=== PATIENT | male | born 1945 | race Caucasian/White ===

== ENCOUNTER 2024-04-24 15:12 | Observation (INO) | payer MEDICARE, MEDICAID, SELFPAY ==
[2024-04-24] VITALS (9 sets, daily range): BP systolic 109–150; BP diastolic 64–75; PULSE 74–80; RESP 15–20; TEMP 36.4–36.9; O2SAT 98–100; BMI 31.7
--- NOTE | ~2024-04-24 | XR_ITS ---
XR chest 1V portable Ordering provider: Vasquez Stewart MD History: 79 years Male with . AMS INCREASING WEAKNESS AND DIZZINESS . Comparison: April 06, 2024 FINDINGS: MEDIASTINUM: The cardiac silhouette is not enlarged. Slightly enlarged. LUNGS: No infiltrates, effusions or pneumothorax. Underlying interstitial changes suggestive of fibro sis. Prominent markings in the lower lobes bilaterally. OTHER: No free air under the diaphragm. Degenerative changes of the spine. IMPRESSION: No acute cardiopulmonary pathology. Reviewed, dictated and finalized at location A.
--- NOTE | ~2024-04-24 | CT_ITS ---
CT brain wo con Ordering provider: Vasquez Stewart MD History: 79 years Male with . AMS . Comparison: April 06, 2024 Technique: CT of the head without contrast. Radiation reduction technique utilized. The DLP is 605.33 mGy. FINDINGS: BRAIN PARENCHYMA AND CSF SPACES: Deep white matter ischemic changes. No midline shift, mass effect or hemorrhage. The brain parenchyma and CSF spaces are otherwise normal. VISUALIZED PARANASAL SINUSES: Well aerated. MASTOIDS: Well aerated. BONES: The bones appear intact. SOFT TISSUES: Visualized nasopharynx is normal. Superficial soft tissues are normal. IMPRESSION: No acute intracranial findings. Reviewed, dictated and finalized at location A.
--- NOTE | ~2024-04-24 | US_ITS ---
EXAMINATION: US abdomen limited DATE: 05/03/2024 07:41 INDICATION: Abnormal liver function tests. TECHNIQUE: Multiple grayscale and Doppler ultrasound images of the abdomen were obtained. COMPARISON: None FINDINGS: The visualized portions of the head and body of the pancreas are normal. The liver is fatimah l without focal lesion. There is normal flow in main portal vein. The gallbladder is normal in size. No gallstones or gallbladder wall thickening. There was no sonographic Pena's sign. The common duct is normal and measures 4 mm. IMPRESSION: 1. Normal right upper quadrant ultrasound. Reviewed, dictated and finalized at location A.
--- NOTE | ~2024-04-24 | CT_ITS ---
EXAMINATION: CT brain wo con DATE: 04/26/2024 17:20 INDICATION: AMS . TECHNIQUE: Computed tomography (CT) of the head was performed without intravenous contrast. The mA wa s adjusted according to patient size. Iterative reconstruction technique was employed. The dose-lengt h product was 681.00 mGy-cm. COMPARISON: 04/24/2024. FINDINGS: No acute intracranial hemorrhage or extra-axial fluid collection. No hydrocephalus, mass, or herniation. No acute ischemic infarct. Unremarkable dural venous sinus attenuation. No acute osseous abnormality. The aerated spaces are clear. Mild atrophy and chronic white matter change. Atherosclerotic intracranial calcification. 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 IMPRESSION: No acute intracranial process. Reviewed, dictated and finalized at location K.
--- NOTE | 2024-04-24 15:17 | ECG_ITS ---
Test Date: 2024-04-24 15:17:54 Measurements Intervals [place] Rate: 77 P: 99 [place]: 158 QRS: 10 QRSD: 94 T: 29 QT: 397 QTc: 452 Interpretive Statements SINUS RHYTHM NORMAL ELECTROCARDIOGRAM No previous ECG available for comparison Electronically Signed On 04-25-2024 15:05:07 CDT by Dustin Isaac M.D.
--- NOTE | 2024-04-24 15:33 | ED.AMS ---
HPI - Altered Mental Status General Chief Complaint: Altered Mental Status Stated Complaint: AMS Time Seen by Provider: 04/24/24 15:15 History of Present Illness HPI narrative: Patient is a 79-year-old male who presents ER with altered mental status from his detention. No reports of recent illness or fever. Accu-Chek for EMS was normal. Patient appears sleepy. Related Data Home Medications Medication Instructions Recorded Confirmed amiodarone 200 mg tablet 200 mg PO DAILY 03/27/24 04/20/24 aspirin 81 mg capsule 81 mg PO DAILY 03/27/24 04/20/24 atorvastatin 40 mg tablet 40 mg PO DAILY 03/27/24 04/20/24 baclofen 10 mg tablet 5 mg PO Q8H PRN muscle spasms 03/27/24 04/20/24 multivit with minerals-iron 18 1 tablet PO DAILY 03/27/24 04/20/24 mg-folic ac 400 mcg-vit K 25 mcg tablet (Adults Multivitamin) sertraline 100 mg tablet 100 mg PO DAILY 03/27/24 04/20/24 Allergies Allergy/AdvReac Type Severity Reaction Status Date / Time No Known Allergies Allergy Verified 03/27/24 21:13 Review of Systems Review of Systems: ROS unobtainable: Yes unobtainable due to medical condition PMFSH Past Medical History Medical History (Updated 04/24/24 @ 18:22 by Vasquez Stewart MD) A-fib CAD (coronary artery disease) Chronic diastolic heart failure CKD (chronic kidney disease) History of pulmonary embolism Hyperlipidemia Hypertension Testicular cancer Surgical History Surgical History (Updated 04/08/24 @ 13:22 by Priscila Garduno MD) H/O cardiac catheterization Family History Family History (Updated 04/08/24 @ 13:23 by Priscila Garduno MD) Mother Cancer Father Malignant neoplasm of prostate Social History Social History Smoking status: Never smoker Alcohol intake: former Substance use: never Substance use type: prescription drug Other substance usage details: denies illicit substances. reports taking prescriptions as ordered. Last use: last ETOH use 29 years ago- drank until I was drunk Do You Feel Safe in your Home?: Yes Lack of Transportation: YES Lack of Food: Often True Current Housing: I Have Housing Concerned About Future Housing: YES Difficulty Paying Gas/Electric Bills: No Difficulty Paying for Meds: No Currently Unemployed: No Education: Grade School Difficulty w/ Childcare or Family Care: No Spiritual care concerns: No Exam Narrative: GENERAL: Chronically iull-appearing, well-nourished, and in no acute distress. HEAD: Normocephalic, atraumatic. EYES: PERRL and EOMI. ENT: Mucous membranes moist. CHEST: Clear to auscultation. No respiratory distress. HEART: Regular rate and rhythm. Normal peripheral pulses. ABDOMEN: Soft, nontender, nondistended. EXTREMITIES: Normal range of motion. No edema. SKIN: Warm, dry, no rash. NEURO: Moves all extremities, to facial droop, wakens to noxious stimuli. Course Course Emergency Course: Patient is now awake alert orient x3. Apparently his Coumadin was discontinued a couple days ago and he was started on Xarelto. He has remote history of blood clots. Additionally his last INR on April 13 was 2.4. Vital Signs Vital signs: Vital Signs Temperature 98.4 F 04/24/24 15:12 Pulse Rate 79 04/24/24 15:12 Respiratory Rate 16 04/24/24 15:12 Blood Pressure 150/67 H 04/24/24 15:12 Pulse Oximetry 100 04/24/24 15:12 Oxygen Delivery Nasal Cannula 04/24/24 15:12 Oxygen Flow Rate 2 04/24/24 15:12 Temperature 98.4 F 04/24/24 15:12 Pulse Rate 78 04/24/24 17:31 Respiratory Rate 16 04/24/24 17:31 Blood Pressure 141/64 H 04/24/24 17:31 Pulse Oximetry 98 04/24/24 17:31 Oxygen Delivery Nasal Cannula 04/24/24 15:57 Oxygen Flow Rate 2 04/24/24 15:57 MDM - Altered Mental Status Lab Data 04/24/24 15:35 04/24/24 15:35 Labs: Lab Results 04/24/24 04/24/24 04/24/24 Range/Un
[2024-04-24 15:45] LABS: Basophils Absolute Auto 0.1 K/mm3 (0.0-0.1); Basophils Percent Auto 0.9 % (0.2-1.2); Eosinophils Absolute Auto 0.1 K/mm3 (0-0.3); Eosinophils Percent Auto 1.3 % (0-4.4); Hematocrit 28.4 % (42.0-52.0); Immature Granulocyte Absolute 0.02 K/mm3 (0.00-0.031); Immature Granulocyte Percent A 0.3 % (0-0.5); Lymphocytes Absolute Auto 0.64 K/mm3 (0.9-3.2); Mean Corpuscular HGB Conc 31.7 g/dl (32-36); Mean Corpuscular Volume 97.9 fl (80-100); Mean Platelet Volume 9.7 fl (7.4-10.4); Monocytes Absolute Auto 0.6 K/mm3 (0.1-0.6); Monocytes Percent Auto 8.6 % (2.6-8.5); Neutrophils Percent Auto 78.9 % (45.5-73.1); Platelet Count Result 232 k/mm3 (150-375); Red Cell Distribution Width 15.8 % (11.5-14.5); White Blood Count 6.4 K/mm3 (4.5-10.0)
[2024-04-24 15:56] LABS: Alanine Aminotransferase 48 U/L (6-50); Albumin Level 3.4 g/dL (3.5-5.1); Alkaline Phosphatase 97 U/L (38-126); Anion Gap 4 mmol/L (4-12); Aspartate Amino Transferase 74 U/L (17-59); Bilirubin,Total 0.5 mg/dL (0.2-1.3); Blood Urea Nitrogen 43 mg/dL (9-20); Calcium 8.9 mg/dL (8.4-10.2); Carbon Dioxide 28 mmol/L (22-30); Chloride 113 mmol/L (98-107); Estimated CRCL calculation 33 ml/min; Estimated Glomerular Filt Rate 39; Glucose 134 mg/dL (65-110); Lactic Acid Reflex 0.8 mmol/L (0.7-2.0); Potassium 4.1 mmol/L (3.4-5.0); Sodium 145 mmol/L (137-145)
[2024-04-24 15:57] LABS: Partial Thromboplastin Time 74.3 Seconds (22.3-36.8)
[2024-04-24] MEDS: SODIUM CHLORIDE 0.9% IV 1,000 ML 999 ML IV CONT (16:01)
[2024-04-24 16:07] LABS: Prothrombin Time 70.4 Seconds (11.1-14.7)
[2024-04-24 16:09] LABS: INR 8.6
[2024-04-24 16:25] LABS: Appearance Urine Clear (Clear); Bacteria Urine None Seen /hpf; Bilirubin Urine 1+ (Negative); Blood Urine Negative (Negative); Color Urine Dark Yellow (Yellow); Glucose Urine UA Negative (Negative); Ketones Urine Trace mg/dL (Negative); Leukocyte Esterase Ur Negative LEU/UL (Negative); Mucus Urine Present /lpf; Need Manual Microscopic Reviewed; Nitrate Urine Negative (Negative); Protein Urine 1+ mg/dL (Negative); Squamous Epithelial Cell Urine None Seen /hpf (Few); pH Urine 5.5 (5.0-9.0)
[2024-04-24 16:26] LABS: Add Urine Microscopic? YES
[2024-04-24] MEDS: PHYTONADIONE 2.5 MG TAB PO (18:16)
--- NOTE | 2024-04-24 19:35 | PM.IMHP ---
H&P: HPI History of Present Illness Date/Time: 04/24/24 21:00 Chief Complaint: Altered mental status. Narrative: This is a 79-year-old male with history of atrial fibrillation on chronic anticoagulation, diastolic congestive heart failure, coronary artery disease, hypertension, chronic kidney disease, chronic respiratory failure on 2 L, pulmonary embolism, melanoma, and testicular cancer who presented to the emergency department via EMS from [facility] for evaluation of altered mental status. He is a fair historian however some of the following is supplemented via a review of his EMR. He was hospitalized at [facility] in [place] in early March after a fall and was treated for pneumonia at that time. He was discharged to [facility] for further therapy and was discharged from there to [facility] on May 13, 2024. Daughter reports that he has had periods of confusion at each of these facilities however the last 24 hours he has become increasingly confused. This morning he reportedly was only alert to self and he was sent in for evaluation. The patient tells me that he was woken up at 07:30 this morning for therapy which he refused as he was still sleeping and they were irritated so they sent him here. This could not be corroborated however. The patient tells me he feels just fine and he has no complaints. He denies headache, fever, chills, sweats, sinus congestion, sore throat, cough, chest pain, pleuritic pain, abdominal pain, nausea, vomiting, diarrhea, and dysuria. He has not had any recent falls. He also denies epistaxis, hematemesis, melena, hematochezia, and hematuria. Of note he was recently switched from warfarin to Xarelto. In the ED: He was afebrile on arrival with stable vital signs. Labs were significant for WBC count 6.4, hemoglobin 9.0, PTT 70.4, INR E 0.6, PTT 74.3., BUN 43, creatinine 1.70, lactic acid 0.8, AST 74. Urine was positive for 1+ protein, trace ketones, 1+ bilirubin, 3 to 5 RBC, 6 to 10 WBC, and 11 to 20 casts. Chest x-ray and head CT showed no acute findings. He was given a L normal saline bolus and 2.5 mg p.o. phytonadione and he is being admitted in this setting for or close monitoring and further workup. Review of Systems Review of Systems: Twelve systems were reviewed and are negative except for as per HPI. He is only a fair historian making the accuracy questionable. [facility] Past Medical History Medical History Atrial fibrillation Chronic anemia Chronic anticoagulation Chronic diastolic heart failure Closed wedge compression fracture of T12 vertebra with routine healing Coronary artery disease Depression with anxiety Hyperlipidemia Hypertension Malignant melanoma Pulmonary embolism Stage 3b chronic kidney disease Testicular cancer Surgical History Surgical History History of cardiac catheterization History of coronary artery stent placement Family History Family History Mother Cancer Father Malignant neoplasm of prostate Social History Social History (Updated 04/24/24 @ 23:23 by Maritza Loving PA-C) Social History: Surrogate medical decision maker: Constance Pak, daughter. Code status: Do not resuscitate. Smoking status: Never smoker Alcohol intake: never Substance use: never Substance use type: does not use Do You Feel Safe in your Home?: Yes Lack of Transportation: No Lack of Food: Never True Current Housing: I Have Housing Concerned About Future Housing: No Difficulty Paying Gas/Electric Bills: No Difficulty Paying for Meds: No Currently Unemployed: No Education: High School Diploma/GED Difficulty w/ Childcare or Family Care: No Spiritual care concerns: No Meds Home Medications and Allergies Home Medications Medication Instructions Recorded Confirmed Type amiod
[2024-04-24 20:13] LABS: Alveolar/Arterial O2 Gradient 64.5 mmHg; Base Excess ABG -1.3 mEq/l (+/-2.0); Carboxyhemoglobin 0.2 % THb (0-2.0); Device NASAL CANNULA; Fractional Inspired Oxygen 28 %; HCO3 ABG 23.6 mEq/l (22.0-26.0); Methemoglobin ABG 0.2 %THb (0-1.5); Oxygen Content ABG 12.9 %vol (16.0-22.0); Oxygen Saturation ABG 96.6 % (95.0-100.0); Oxyhemoglobin 95.9 % THb (90.0-100.0); PCO2 ABG 40.3 mmHg (35.0-45.0); PO2 ABG 87.6 mmHg (80.0-100.0); PO2 FiO2 Ratio Arterial Blood 3.13 %; Reduced Hemoglobin 3.7 %THb (0-5.0); Site Drawn RIGHT BRACHIAL; Total Hemoglobin 9.5 g/dL (12.0-18.0); pH ABG 7.386 (7.350-7.450)
[2024-04-24 20:15] LABS: Erythrocyte Sedimentation Rate > 140 mm/hr (0-20)
[2024-04-24 20:31] LABS: Ammonia < 9 umol/L (9-30)
[2024-04-24 20:49] LABS: Iron 48 ug/dL (49-181)
[2024-04-24 21:03] LABS: Percent Iron Saturation 18 % (20-50)
[2024-04-24 21:34] LABS: Folic Acid > 20.0 ng/mL (2.76->20)
[2024-04-25] VITALS (16 sets, daily range): BP systolic 131–146; BP diastolic 59–68; PULSE 76–90; RESP 18–20; TEMP 36.4–37; O2SAT 92–97; BMI 32.3
[2024-04-25 02:49] LABS: Amphetamine Screen Urine Negative (Negative); Barbiturate Screen Urine Negative (Negative); Benzodiazepines Screen Urine Negative (Negative); Cannabinoid Screen Urine Negative (Negative); Cocaine Screen Urine Negative (Negative); Methadone Screen Urine Negative (Negative); Opiate Screen Urine Negative (Negative); Phencyclidine Screen Urine Negative (Negative)
[2024-04-25 05:16] LABS: Hematocrit 28.6 % (42.0-52.0); Hemoglobin 8.5 g/dL (14.0-18.0); Mean Corpuscular HGB Conc 29.7 g/dl (32-36); Mean Corpuscular Hemoglobin 30.2 pg (26-34); Mean Corpuscular Volume 101.8 fl (80-100); Platelet Count Result 228 k/mm3 (150-375); Red Blood Count 2.81 M/mm3 (4.6-6.20); Red Cell Distribution Width 15.6 % (11.5-14.5); White Blood Count 6.6 K/mm3 (4.5-10.0)
[2024-04-25 05:30] LABS: INR 4.5; Prothrombin Time 43.2 Seconds (11.1-14.7)
[2024-04-25 05:31] LABS: Alanine Aminotransferase 44 U/L (6-50); Albumin Level 3.3 g/dL (3.5-5.1); Alkaline Phosphatase 84 U/L (38-126); Anion Gap 6 mmol/L (4-12); Aspartate Amino Transferase 68 U/L (17-59); Bilirubin,Total 0.6 mg/dL (0.2-1.3); Blood Urea Nitrogen 41 mg/dL (9-20); CRP 3.4 mg/dL (<1.0); Calcium 8.7 mg/dL (8.4-10.2); Carbon Dioxide 25 mmol/L (22-30); Chloride 115 mmol/L (98-107); Estimated CRCL calculation 43 ml/min; Estimated Glomerular Filt Rate 49; Glucose 84 mg/dL (65-110); Magnesium 1.7 mg/dL (1.6-2.3); Potassium 4.5 mmol/L (3.4-5.0); Sodium 146 mmol/L (137-145)
--- NOTE | 2024-04-25 07:07 | PM.IMPN ---
Progress Note: A&P Assessment and Plan (1) Altered mental status: Code(s): R41.82 - Altered mental status, unspecified Status: Acute Assessment and Plan: The patient presented to the hospital from [facility] for evaluation of altered mental status over last 24 hours. Etiology is not entirely clear. He remains afebrile with a normal WBC count and no findings of infection on chest x-ray or urinalysis. Brain CT was without acute findings. Of note patient has been to several different facilities in the past few months. Possible that this is underlying dementia being exacerbated. - AOx3 (person, place, year) on exam. He does become a bit confused during assessment and talks to himself some, however daughter says this has been ongoing since being moved to [facility]. - Monitor (2) Supratherapeutic INR: Code(s): R79.1 - Abnormal coagulation profile Status: Acute Assessment and Plan: Patient was recently transitioned to Xarelto from warfarin. Coags prolonged on admission, INR noted to be 8.6. He received 2.5 mg phytonadione in the ED. - Continue holding Xarelto - Trend coags daily with morning labs - Monitor for signs of active bleeding (3) Falls: Code(s): W19.XXXA - Unspecified fall, initial encounter Status: Acute Assessment and Plan: Patient reports frequent falls. He states that his legs just give out. He denies lightheadedness, dizziness, or syncope prior to falls. He continues to work with therapy at [facility]. - PT/OT - Fall precautions (4) Stage 3b chronic kidney disease: Code(s): N18.32 - Chronic kidney disease, stage 3b Status: Chronic Assessment and Plan: Chronic, BUN/Cr at baseline. - Monitor with daily labs - I/O (5) Chronic anemia: Code(s): D64.9 - Anemia, unspecified Status: Acute Assessment and Plan: Chronic, H/H at baseline. No signs of active bleeding. - Continue iron supplementation - Monitor for signs of bleeding as INR is supratherapeutic (6) Atrial fibrillation: Code(s): I48.91 - Unspecified atrial fibrillation Status: Acute Assessment and Plan: Chronic, rate controlled. - Continue amiodarone 200 mg daily and metoprolol 25 mg daily - Holding Xarelto as patient continues to have supratherapeutic INR (7) Hypertension: Code(s): I10 - Essential (primary) hypertension Status: Acute Assessment and Plan: Chronic, stable on home medications. - Metoprolol 25 mg daily - Monitor (8) Chronic diastolic heart failure: Code(s): I50.32 - Chronic diastolic (congestive) heart failure Status: Acute Assessment and Plan: Chronic, not in acute exacerbation. Time Spent With Patient Time with patient: 25 - 35 minutes Subjective Date/time seen: 04/25/24 07:07 Interval history: 79-year-old male with history of atrial fibrillation on chronic anticoagulation, diastolic congestive heart failure, coronary artery disease, hypertension, chronic kidney disease, chronic respiratory failure on 2 L, pulmonary embolism, melanoma, and testicular cancer who presented to the emergency department via EMS from [facility] for evaluation of altered mental status. Patient is pleasant lying comfortably in bed with daughter at bedside. He remains AOx3. He remains on supplemental oxygen which has been baseline since his previous hospitalization approximately 6 weeks ago for pneumonia. Patient is currently at [facility] for rehab. He states that the inhouse physician recently placed him on Xarelto, per daughter this has been within 2-3 days. His INR is downtrending and now 4.5 on am labs. No signs of active bleeding noted. Will continue to monitor. Patient notes that he has been increasingly unsteady. He reports a fall at the facility yesterday due to his legs giving out. He denies lightheadedness or dizziness prior to fall, hitting his head, and loss of consciousn
[2024-04-25] MEDS: IPRATROPIUM BR 0.02% INH SOLN 0.5 MG/2.5 ML VIAL 0.2 MG INHALATION ×2 (07:54→20:23)
[2024-04-25] MEDS: ASPIRIN 81 MG CHEWABLE TABLET PO (08:55)
[2024-04-25] MEDS: SERTRALINE HCL 50 MG TABLET 100 MG PO (08:55)
[2024-04-25] MEDS: GABAPENTIN 100 MG CAPSULE 200 MG PO ×2 (08:55→16:37)
[2024-04-25] MEDS: ATORVASTATIN 40 MG TABLET PO (08:55)
[2024-04-25] MEDS: AMIODARONE HCL 200 MG TABLET PO (08:55)
[2024-04-25] MEDS: METOPROLOL SUCCINATE EXT REL 25 MG TABCR PO (08:56)
[2024-04-25] MEDS: MULTIVITAMINS /C LUTEIN (CENTRUM SILVER) TABLET *BKC 1 TAB PO (08:56)
[2024-04-25] MEDS: CALCITONIN NASAL 200 UNITS/SPRAY 3.7 ML BOTTLE 1 SPRAY NASAL (09:09)
[2024-04-26] VITALS (17 sets, daily range): BP systolic 129–159; BP diastolic 54–76; PULSE 73–86; RESP 12–20; TEMP 36.4–36.8; O2SAT 91–97
[2024-04-26 06:01] LABS: INR 1.3; Prothrombin Time 17.1 Seconds (11.1-14.7)
[2024-04-26 06:04] LABS: Hematocrit 32.4 % (42.0-52.0); Hemoglobin 9.5 g/dL (14.0-18.0); Mean Corpuscular HGB Conc 29.3 g/dl (32-36); Mean Corpuscular Hemoglobin 29.8 pg (26-34); Mean Corpuscular Volume 101.6 fl (80-100); Mean Platelet Volume 10.3 fl (7.4-10.4); Platelet Count Result 244 k/mm3 (150-375); Red Blood Count 3.19 M/mm3 (4.6-6.20); Red Cell Distribution Width 15.5 % (11.5-14.5); White Blood Count 7.6 K/mm3 (4.5-10.0)
[2024-04-26 06:08] LABS: Anion Gap 6 mmol/L (4-12); Blood Urea Nitrogen 38 mg/dL (9-20); Calcium 9.2 mg/dL (8.4-10.2); Carbon Dioxide 27 mmol/L (22-30); Chloride 112 mmol/L (98-107); Estimated CRCL calculation 47 ml/min; Estimated Glomerular Filt Rate 54; Glucose 87 mg/dL (65-110); Potassium 4.7 mmol/L (3.4-5.0); Sodium 145 mmol/L (137-145)
--- NOTE | 2024-04-26 07:28 | PM.IMPN ---
Progress Note: A&P Assessment and Plan (1) Altered mental status: Code(s): R41.82 - Altered mental status, unspecified Status: Acute Assessment and Plan: The patient presented to the hospital from [facility] for evaluation of altered mental status over last 24 hours. Etiology is not entirely clear. He remains afebrile with a normal WBC count and no findings of infection on chest x-ray or urinalysis. Brain CT was without acute findings. Of note patient has been to several different facilities in the past few months. Possible that this is underlying dementia being exacerbated. - AOx2 (person, place) on exam this morning. He does become a bit confused during assessment and talks to himself some, however daughter says this has been ongoing since being moved to [facility]. - Urine culture: No growth - Head CT: No acute intracranial findings - Chest XR: No acute cardiopulmonary process - UDS negative - TSH, ammonia, B12 and folate WNL - Holding baclofen, consider holding gabapentin - Monitor (2) Supratherapeutic INR: Code(s): R79.1 - Abnormal coagulation profile Status: Acute Assessment and Plan: Patient was recently transitioned to Xarelto from warfarin. Coags prolonged on admission, INR noted to be 8.6. He received 2.5 mg phytonadione in the ED. - INR 1.3 on am labs, restarted Xarelto - Trend coags daily with morning labs - Monitor for signs of active bleeding (3) Falls: Code(s): W19.XXXA - Unspecified fall, initial encounter Status: Acute Assessment and Plan: Patient reports frequent falls. He states that his legs just give out. He denies lightheadedness, dizziness, or syncope prior to falls. He continues to work with therapy at [facility]. - PT/OT - Fall precautions (4) Stage 3b chronic kidney disease: Code(s): N18.32 - Chronic kidney disease, stage 3b Status: Chronic Assessment and Plan: Chronic, BUN/Cr at baseline. - Monitor with daily labs - I/O (5) Chronic anemia: Code(s): D64.9 - Anemia, unspecified Status: Acute Assessment and Plan: Chronic, H/H at baseline. No signs of active bleeding. - Continue iron supplementation - Monitor for signs of bleeding as INR is supratherapeutic (6) Atrial fibrillation: Code(s): I48.91 - Unspecified atrial fibrillation Status: Acute Assessment and Plan: Chronic, rate controlled. - Continue amiodarone 200 mg daily and metoprolol 25 mg daily - Restarted Xarelto (7) Hypertension: Code(s): I10 - Essential (primary) hypertension Status: Acute Assessment and Plan: Chronic, stable on home medications. - Metoprolol 25 mg daily - Monitor (8) Chronic diastolic heart failure: Code(s): I50.32 - Chronic diastolic (congestive) heart failure Status: Acute Assessment and Plan: Chronic, not in acute exacerbation. Time Spent With Patient Time with patient: 25 - 35 minutes Subjective Date/time seen: 04/26/24 07:28 Interval history: 79-year-old male with history of atrial fibrillation on chronic anticoagulation, diastolic congestive heart failure, coronary artery disease, hypertension, chronic kidney disease, chronic respiratory failure on 2 L, pulmonary embolism, melanoma, and testicular cancer who presented to the emergency department via EMS from [facility] for evaluation of altered mental status. Patient is pleasant lying comfortably in bed. INR 1.3 on a.m. labs. Xarelto restarted. He remains on oxygen supplementation at this time with stable saturations. We will continue to wean as tolerated as this is not patient's baseline oxygen he has only been on this since prior pneumonia diagnosis per daughter. Patient has no complaints at this time. PT/OT has been consulted and recommending SNF. Awaiting SNF authorization per care coordination. Review of Systems Review of Systems: All systems reviewed & are unrem
[2024-04-26] MEDS: IPRATROPIUM BR 0.02% INH SOLN 0.5 MG/2.5 ML VIAL 0.2 MG INHALATION ×2 (07:57→20:00)
[2024-04-26] MEDS: AMIODARONE HCL 200 MG TABLET PO (10:01)
[2024-04-26] MEDS: ATORVASTATIN 40 MG TABLET PO (10:01)
[2024-04-26] MEDS: SERTRALINE HCL 50 MG TABLET 100 MG PO (10:01)
[2024-04-26] MEDS: ASPIRIN 81 MG CHEWABLE TABLET PO (10:01)
[2024-04-26] MEDS: MULTIVITAMINS /C LUTEIN (CENTRUM SILVER) TABLET *BKC 1 TAB PO (10:01)
[2024-04-26] MEDS: GABAPENTIN 100 MG CAPSULE 200 MG PO (10:02)
[2024-04-26] MEDS: CALCITONIN NASAL 200 UNITS/SPRAY 3.7 ML BOTTLE 1 SPRAY NASAL (10:03)
[2024-04-26] MEDS: METOPROLOL SUCCINATE EXT REL 25 MG TABCR PO (10:32)
[2024-04-26 12:18] LABS: Glucose Point of Care 88 mg/dl (65-105)
--- NOTE | 2024-04-26 12:57 | P.CDI_ITS ---
CDI Query Clarification Request BMI 33.5 Nutritional Diagnostic Statement: Severe protein calorie malnutrition related to chronic loss of appetite, dementia as evidenced by intakes <75% meals >1 month; weight loss 8%/1 month; mild muscle wasting to temporalis, clavicles; moderate fat loss to buccal fat pads Please refer to the comprehensive nutrition assessment for further information. If you agree with the diagnosis of protein calorie malnutrition, please add to the problem list including the severity: * Mild * Moderate * Severe * Other/Unknown <CARMEL Sumner - Last Filed: 04/26/24 12:58> Clarified Diagnosis Clarified Diagnosis: Severe protein calorie malnutrition <Deandra Wild PA-C - Last Filed: 04/26/24 14:32>
--- NOTE | 2024-04-26 16:34 | ECG_ITS ---
Test Date: 2024-04-26 16:40:07 Measurements Intervals [place] Rate: 77 P: 76 [place]: 130 QRS: 4 QRSD: 97 T: 14 QT: 419 QTc: 475 Interpretive Statements SINUS RHYTHM Compared to ECG 04/24/2024 15:17:54 No significant changes Electronically Signed On 04-27-2024 14:35:05 CDT by Odalys Chapman M.D.
[2024-04-26 16:52] LABS: Glucose Point of Care 81 mg/dl (65-105)
[2024-04-26 16:54] LABS: Alveolar/Arterial O2 Gradient 58.7 mmHg; Base Excess ABG 1.5 mEq/l (+/-2.0); Fractional Inspired Oxygen 28 %; HCO3 ABG 26.5 mEq/l (22.0-26.0); Oxygen Content ABG 13.5 %vol (16.0-22.0); Oxygen Saturation ABG 96.8 % (95.0-100.0); PCO2 ABG 43.8 mmHg (35.0-45.0); PO2 ABG 89.3 mmHg (80.0-100.0); PO2 FiO2 Ratio Arterial Blood 3.19 %; Total Hemoglobin 9.9 g/dL (12.0-18.0)
[2024-04-26 16:56] LABS: Device NASAL CANNULA; Site Drawn RIGHT RADIAL
[2024-04-26] MEDS: RIVAROXABAN 15 MG TABLET PO (17:50)
[2024-04-27] VITALS (14 sets, daily range): BP systolic 117–136; BP diastolic 54–61; PULSE 73–96; RESP 14–20; TEMP 36–37.2; O2SAT 96–98
[2024-04-27] MEDS: IPRATROPIUM BR 0.02% INH SOLN 0.5 MG/2.5 ML VIAL 0.2 MG INHALATION ×2 (07:45→20:29)
[2024-04-27 08:02] LABS: Basophils Absolute Auto 0.1 K/mm3 (0.0-0.1); Eosinophils Absolute Auto 0.2 K/mm3 (0-0.3); Eosinophils Percent Auto 3.1 % (0-4.4); Hematocrit 30.3 % (42.0-52.0); Hemoglobin 9.1 g/dL (14.0-18.0); Immature Granulocyte Absolute 0.03 K/mm3 (0.00-0.031); Immature Granulocyte Percent A 0.5 % (0-0.5); Lymphocytes Absolute Auto 0.77 K/mm3 (0.9-3.2); Lymphocytes Percent Auto 12.6 % (18.3-44.2); Mean Corpuscular Hemoglobin 30.3 pg (26-34); Mean Platelet Volume 9.9 fl (7.4-10.4); Monocytes Absolute Auto 0.5 K/mm3 (0.1-0.6); Monocytes Percent Auto 8.5 % (2.6-8.5); Neutrophils Absolute Auto 4.6 K/mm3 (1.3-6.7); Neutrophils Percent Auto 74.3 % (45.5-73.1); Platelet Count Result 223 k/mm3 (150-375); Red Cell Distribution Width 15.7 % (11.5-14.5); White Blood Count 6.1 K/mm3 (4.5-10.0)
[2024-04-27 08:08] LABS: Alanine Aminotransferase 61 U/L (6-50); Albumin Level 3.3 g/dL (3.5-5.1); Alkaline Phosphatase 98 U/L (38-126); Anion Gap 7 mmol/L (4-12); Aspartate Amino Transferase 76 U/L (17-59); Bilirubin,Total 0.7 mg/dL (0.2-1.3); Blood Urea Nitrogen 37 mg/dL (9-20); Calcium 8.8 mg/dL (8.4-10.2); Carbon Dioxide 27 mmol/L (22-30); Chloride 109 mmol/L (98-107); Estimated CRCL calculation 46 ml/min; Estimated Glomerular Filt Rate 54; Glucose 91 mg/dL (65-110); Potassium 4.2 mmol/L (3.4-5.0); Sodium 143 mmol/L (137-145)
[2024-04-27] MEDS: METOPROLOL SUCCINATE EXT REL 25 MG TABCR PO (08:53)
[2024-04-27] MEDS: MULTIVITAMINS /C LUTEIN (CENTRUM SILVER) TABLET *BKC 1 TAB PO (08:53)
[2024-04-27] MEDS: SERTRALINE HCL 50 MG TABLET 100 MG PO (08:53)
[2024-04-27] MEDS: ATORVASTATIN 40 MG TABLET PO (08:53)
[2024-04-27] MEDS: CALCITONIN NASAL 200 UNITS/SPRAY 3.7 ML BOTTLE 1 SPRAY NASAL (08:53)
[2024-04-27] MEDS: AMIODARONE HCL 200 MG TABLET PO (08:53)
[2024-04-27] MEDS: ASPIRIN 81 MG CHEWABLE TABLET PO (08:53)
--- NOTE | 2024-04-27 12:44 | PM.IMPN ---
Progress Note: A&P Assessment and Plan (1) Supratherapeutic INR: Code(s): R79.1 - Abnormal coagulation profile Status: Acute Assessment and Plan: Patient was recently transitioned to Xarelto from warfarin. Coags prolonged on admission, INR noted to be 8.6. He received 2.5 mg phytonadione in the ED. - INR 1.3 on am labs, restarted Xarelto - Trend coags daily with morning labs - Monitor for signs of active bleeding - Continue to trend INR (2) Falls: Code(s): W19.XXXA - Unspecified fall, initial encounter Status: Acute Assessment and Plan: Patient reports frequent falls. He states that his legs just give out. He denies lightheadedness, dizziness, or syncope prior to falls. He continues to work with therapy at [facility]. - PT/OT - Fall precautions (3) Stage 3b chronic kidney disease: Code(s): N18.32 - Chronic kidney disease, stage 3b Status: Chronic Assessment and Plan: Chronic, BUN/Cr at baseline. - Monitor with daily labs - I/O - BUN/Cr 37/1.30 - Continue to trend (4) Chronic anemia: Code(s): D64.9 - Anemia, unspecified Status: Acute Assessment and Plan: Chronic, H/H at baseline. No signs of active bleeding. - Continue iron supplementation - Monitor for signs of bleeding as INR is supratherapeutic - H/H 9.1/30.3 - Continue to trend (5) Atrial fibrillation: Code(s): I48.91 - Unspecified atrial fibrillation Status: Acute Assessment and Plan: Chronic, rate controlled. - Continue amiodarone 200 mg daily and metoprolol 25 mg daily - Restarted Xarelto - Continue to current therapy (6) Hypertension: Code(s): I10 - Essential (primary) hypertension Status: Acute Assessment and Plan: Chronic, stable on home medications. - Metoprolol 25 mg daily - Monitor - BP stable at 136/61 - Continue to trend (7) Chronic diastolic heart failure: Code(s): I50.32 - Chronic diastolic (congestive) heart failure Status: Acute Assessment and Plan: Chronic, not in acute exacerbation. (8) Acute metabolic encephalopathy: Code(s): G93.41 - Metabolic encephalopathy Status: Acute Assessment and Plan: The patient presented to the hospital from [facility] for evaluation of altered mental status over last 24 hours. Etiology is not entirely clear. He remains afebrile with a normal WBC count and no findings of infection on chest x-ray or urinalysis. Brain CT was without acute findings. Of note patient has been to several different facilities in the past few months. Possible that this is underlying dementia being exacerbated. - AOx2 (person, place) on exam this morning. He does become a bit confused during assessment and talks to himself some, however daughter says this has been ongoing since being moved to [facility]. - Urine culture: No growth - Head CT: No acute intracranial findings - Chest XR: No acute cardiopulmonary process - UDS negative - TSH, ammonia, B12 and folate WNL - Holding baclofen, consider holding gabapentin - Monitor - Seems to be resolved Time Spent With Patient Time: 41 minutes Time with patient: Greater than 35 minutes Subjective Date/time seen: 04/27/24 12:44 Interval history: 79-year-old male with history of atrial fibrillation on chronic anticoagulation, diastolic congestive heart failure, coronary artery disease, hypertension, chronic kidney disease, chronic respiratory failure on 2 L, pulmonary embolism, melanoma, and testicular cancer who presented to the emergency department via EMS from [facility] for evaluation of altered mental status. Patient is currently sitting in the chair. He denies any current chest pain, shortness a breath, nausea, vomiting, diarrhea constipation. Patient is alert oriented times 4. Daughter is also sitting the room with him. Patient is currently on 2 L. Just awaiting auth at this time.. R
[2024-04-27] MEDS: RIVAROXABAN 15 MG TABLET PO (17:14)
[2024-04-28] VITALS (16 sets, daily range): BP systolic 139–145; BP diastolic 62–70; PULSE 75–87; RESP 16–18; TEMP 36.4–36.5; O2SAT 93–98
[2024-04-28 06:02] LABS: Basophils Percent Auto 0.6 % (0.2-1.2); Eosinophils Absolute Auto 0.2 K/mm3 (0-0.3); Eosinophils Percent Auto 3.1 % (0-4.4); Hematocrit 29.9 % (42.0-52.0); Hemoglobin 9.2 g/dL (14.0-18.0); Immature Granulocyte Absolute 0.02 K/mm3 (0.00-0.031); Immature Granulocyte Percent A 0.3 % (0-0.5); Lymphocytes Absolute Auto 0.79 K/mm3 (0.9-3.2); Lymphocytes Percent Auto 12.3 % (18.3-44.2); Mean Corpuscular HGB Conc 30.8 g/dl (32-36); Mean Corpuscular Hemoglobin 30.7 pg (26-34); Mean Corpuscular Volume 99.7 fl (80-100); Mean Platelet Volume 10.1 fl (7.4-10.4); Monocytes Absolute Auto 0.6 K/mm3 (0.1-0.6); Neutrophils Absolute Auto 4.8 K/mm3 (1.3-6.7); Neutrophils Percent Auto 74.7 % (45.5-73.1); Platelet Count Result 228 k/mm3 (150-375); Red Cell Distribution Width 15.6 % (11.5-14.5); White Blood Count 6.4 K/mm3 (4.5-10.0)
[2024-04-28 06:18] LABS: INR 2.7
[2024-04-28 06:19] LABS: Partial Thromboplastin Time 47.1 Seconds (22.3-36.8)
[2024-04-28 06:30] LABS: Alanine Aminotransferase 68 U/L (6-50); Albumin Level 3.2 g/dL (3.5-5.1); Alkaline Phosphatase 99 U/L (38-126); Anion Gap 4 mmol/L (4-12); Aspartate Amino Transferase 79 U/L (17-59); Bilirubin,Total 0.6 mg/dL (0.2-1.3); Blood Urea Nitrogen 38 mg/dL (9-20); Calcium 8.8 mg/dL (8.4-10.2); Carbon Dioxide 30 mmol/L (22-30); Chloride 108 mmol/L (98-107); Estimated CRCL calculation 46 ml/min; Estimated Glomerular Filt Rate 54; Glucose 100 mg/dL (65-110); Potassium 4.1 mmol/L (3.4-5.0); Sodium 142 mmol/L (137-145)
--- NOTE | 2024-04-28 07:26 | PM.DS ---
DS: Admitting Diagnosis Discharge Date 04/28/2024 Admitting Diagnosis Supratherapeutic INR DS: Discharge Diagnosis Discharge Diagnosis (1) Supratherapeutic INR: Code(s): R79.1 - Abnormal coagulation profile Status: Acute Assessment and Plan: Patient was recently transitioned to Xarelto from warfarin. Coags prolonged on admission, INR noted to be 8.6. He received 2.5 mg phytonadione in the ED. - INR 1.3 on am labs, restarted Xarelto - Trend coags daily with morning labs - Monitor for signs of active bleeding - Continue to trend INR - Current INR 2.7 (2) Falls: Code(s): W19.XXXA - Unspecified fall, initial encounter Status: Acute Assessment and Plan: Patient reports frequent falls. He states that his legs just give out. He denies lightheadedness, dizziness, or syncope prior to falls. He continues to work with therapy at [facility]. - PT/OT - Fall precautions (3) Stage 3b chronic kidney disease: Code(s): N18.32 - Chronic kidney disease, stage 3b Status: Chronic Assessment and Plan: Chronic, BUN/Cr at baseline. - Monitor with daily labs - I/O - BUN/Cr 38/1.30 - Continue to trend (4) Chronic anemia: Code(s): D64.9 - Anemia, unspecified Status: Acute Assessment and Plan: Chronic, H/H at baseline. No signs of active bleeding. - Continue iron supplementation - Monitor for signs of bleeding as INR is supratherapeutic - H/H 9.2/29.9 - Continue to trend (5) Atrial fibrillation: Code(s): I48.91 - Unspecified atrial fibrillation Status: Acute Assessment and Plan: Chronic, rate controlled. - Continue amiodarone 200 mg daily and metoprolol 25 mg daily - Restarted Xarelto - Continue to current therapy (6) Hypertension: Code(s): I10 - Essential (primary) hypertension Status: Acute Assessment and Plan: Chronic, stable on home medications. - Metoprolol 25 mg daily - Monitor - BP stable at 139/63 - Continue to trend (7) Chronic diastolic heart failure: Code(s): I50.32 - Chronic diastolic (congestive) heart failure Status: Acute Assessment and Plan: Chronic, not in acute exacerbation (8) Acute metabolic encephalopathy: Code(s): G93.41 - Metabolic encephalopathy Status: Acute Assessment and Plan: The patient presented to the hospital from [facility] for evaluation of altered mental status over last 24 hours. Etiology is not entirely clear. He remains afebrile with a normal WBC count and no findings of infection on chest x-ray or urinalysis. Brain CT was without acute findings. Of note patient has been to several different facilities in the past few months. Possible that this is underlying dementia being exacerbated. - AOx2 (person, place) on exam this morning. He does become a bit confused during assessment and talks to himself some, however daughter says this has been ongoing since being moved to [facility]. - Urine culture: No growth - Head CT: No acute intracranial findings - Chest XR: No acute cardiopulmonary process - UDS negative - TSH, ammonia, B12 and folate WNL - Holding baclofen, consider holding gabapentin - Monitor - Seems to be resolved DS: Summary Hospital Course Hospital Course: 79-year-old male with history of atrial fibrillation on chronic anticoagulation, diastolic congestive heart failure, coronary artery disease, hypertension, chronic kidney disease, chronic respiratory failure on 2 L, pulmonary embolism, melanoma, and testicular cancer who presented to the emergency department via EMS from [facility] for evaluation of altered mental status. On admission INR noted to be elevated at 8.6. Xarelto held and INR reduced to 1.3. Currently INR is 2.7 after restarting Xarelto. Currently mental status is better after holding baclofen, gabapentin. Head CT negative for any acute findings. Repeat head CT also without an
[2024-04-28] MEDS: IPRATROPIUM BR 0.02% INH SOLN 0.5 MG/2.5 ML VIAL 0.2 MG INHALATION ×2 (07:30→18:00)
[2024-04-28] MEDS: ASPIRIN 81 MG CHEWABLE TABLET PO (09:23)
[2024-04-28] MEDS: ATORVASTATIN 40 MG TABLET PO (09:24)
[2024-04-28] MEDS: AMIODARONE HCL 200 MG TABLET PO (09:24)
[2024-04-28] MEDS: METOPROLOL SUCCINATE EXT REL 25 MG TABCR PO (09:24)
[2024-04-28] MEDS: SERTRALINE HCL 50 MG TABLET 100 MG PO (09:24)
[2024-04-28] MEDS: MULTIVITAMINS /C LUTEIN (CENTRUM SILVER) TABLET *BKC 1 TAB PO (09:24)
[2024-04-28] MEDS: CALCITONIN NASAL 200 UNITS/SPRAY 3.7 ML BOTTLE 1 SPRAY NASAL (09:25)
[2024-04-28] MEDS: ACETAMINOPHEN 325 MG TABLET 650 MG PO (11:22)
--- NOTE | 2024-04-28 14:25 | PM.IMPN ---
Progress Note: A&P Assessment and Plan (1) Supratherapeutic INR: Code(s): R79.1 - Abnormal coagulation profile Status: Acute Assessment and Plan: Patient was recently transitioned to Xarelto from warfarin. Coags prolonged on admission, INR noted to be 8.6. He received 2.5 mg phytonadione in the ED. - INR 1.3 on am labs, restarted Xarelto - Trend coags daily with morning labs - Monitor for signs of active bleeding - Continue to trend INR - Current INR 2.7 (2) Falls: Code(s): W19.XXXA - Unspecified fall, initial encounter Status: Acute Assessment and Plan: Patient reports frequent falls. He states that his legs just give out. He denies lightheadedness, dizziness, or syncope prior to falls. He continues to work with therapy at [facility]. - PT/OT - Fall precautions (3) Stage 3b chronic kidney disease: Code(s): N18.32 - Chronic kidney disease, stage 3b Status: Chronic Assessment and Plan: Chronic, BUN/Cr at baseline. - Monitor with daily labs - I/O - BUN/Cr 38/1.30 - Continue to trend (4) Chronic anemia: Code(s): D64.9 - Anemia, unspecified Status: Acute Assessment and Plan: Chronic, H/H at baseline. No signs of active bleeding. - Continue iron supplementation - Monitor for signs of bleeding as INR is supratherapeutic - H/H 9.2/29.9 - Continue to trend (5) Atrial fibrillation: Code(s): I48.91 - Unspecified atrial fibrillation Status: Acute Assessment and Plan: Chronic, rate controlled. - Continue amiodarone 200 mg daily and metoprolol 25 mg daily - Restarted Xarelto - Continue to current therapy (6) Hypertension: Code(s): I10 - Essential (primary) hypertension Status: Acute Assessment and Plan: Chronic, stable on home medications. - Metoprolol 25 mg daily - Monitor - BP stable at 139/63 - Continue to trend (7) Chronic diastolic heart failure: Code(s): I50.32 - Chronic diastolic (congestive) heart failure Status: Acute Assessment and Plan: Chronic, not in acute exacerbation (8) Acute metabolic encephalopathy: Code(s): G93.41 - Metabolic encephalopathy Status: Acute Assessment and Plan: The patient presented to the hospital from [facility] for evaluation of altered mental status over last 24 hours. Etiology is not entirely clear. He remains afebrile with a normal WBC count and no findings of infection on chest x-ray or urinalysis. Brain CT was without acute findings. Of note patient has been to several different facilities in the past few months. Possible that this is underlying dementia being exacerbated. - AOx2 (person, place) on exam this morning. He does become a bit confused during assessment and talks to himself some, however daughter says this has been ongoing since being moved to [facility]. - Urine culture: No growth - Head CT: No acute intracranial findings - Chest XR: No acute cardiopulmonary process - UDS negative - TSH, ammonia, B12 and folate WNL - Holding baclofen, consider holding gabapentin - Monitor - Seems to be resolved Time Spent With Patient Time: 41 minutes Time with patient: Greater than 35 minutes Subjective Date/time seen: 04/28/24 14:25 Interval history: 79-year-old male with history of atrial fibrillation on chronic anticoagulation, diastolic congestive heart failure, coronary artery disease, hypertension, chronic kidney disease, chronic respiratory failure on 2 L, pulmonary embolism, melanoma, and testicular cancer who presented to the emergency department via EMS from [facility] for evaluation of altered mental status. Patient is currently lying in bed. He really is ready to go. He denies any current chest pain, shortness a breath, nausea, vomiting, diarrhea constipation. Review of Systems Review of Systems: All systems reviewed & are unremarkable except as noted in HPI and be
[2024-04-28] MEDS: RIVAROXABAN 15 MG TABLET PO (17:24)
[2024-04-29] VITALS (15 sets, daily range): BP systolic 114–143; BP diastolic 61–81; PULSE 70–87; RESP 17–18; TEMP 36.1–36.6; O2SAT 94–99
[2024-04-29] MEDS: IPRATROPIUM BR 0.02% INH SOLN 0.5 MG/2.5 ML VIAL 0.2 MG INHALATION ×2 (07:36→20:23)
[2024-04-29 08:26] LABS: Alanine Aminotransferase 76 U/L (6-50); Albumin Level 3.4 g/dL (3.5-5.1); Alkaline Phosphatase 105 U/L (38-126); Anion Gap 4 mmol/L (4-12); Aspartate Amino Transferase 85 U/L (17-59); Bilirubin,Total 0.8 mg/dL (0.2-1.3); Blood Urea Nitrogen 37 mg/dL (9-20); Calcium 8.9 mg/dL (8.4-10.2); Carbon Dioxide 31 mmol/L (22-30); Chloride 106 mmol/L (98-107); Estimated CRCL calculation 46 ml/min; Estimated Glomerular Filt Rate 54; Glucose 90 mg/dL (65-110); Potassium 4.2 mmol/L (3.4-5.0); Sodium 141 mmol/L (137-145)
[2024-04-29 08:52] LABS: Basophils Absolute Auto 0.1 K/mm3 (0.0-0.1); Basophils Percent Auto 0.8 % (0.2-1.2); Eosinophils Absolute Auto 0.2 K/mm3 (0-0.3); Eosinophils Percent Auto 2.9 % (0-4.4); Hematocrit 30.6 % (42.0-52.0); Hemoglobin 9.6 g/dL (14.0-18.0); Immature Granulocyte Absolute 0.01 K/mm3 (0.00-0.031); Immature Granulocyte Percent A 0.2 % (0-0.5); Lymphocytes Absolute Auto 0.83 K/mm3 (0.9-3.2); Lymphocytes Percent Auto 13.3 % (18.3-44.2); Mean Corpuscular HGB Conc 31.4 g/dl (32-36); Mean Corpuscular Hemoglobin 30.8 pg (26-34); Mean Corpuscular Volume 98.1 fl (80-100); Mean Platelet Volume 10.7 fl (7.4-10.4); Monocytes Absolute Auto 0.5 K/mm3 (0.1-0.6); Monocytes Percent Auto 8.6 % (2.6-8.5); Neutrophils Absolute Auto 4.6 K/mm3 (1.3-6.7); Neutrophils Percent Auto 74.2 % (45.5-73.1); Platelet Count Result 246 k/mm3 (150-375); Red Blood Count 3.12 M/mm3 (4.6-6.20); Red Cell Distribution Width 15.5 % (11.5-14.5); White Blood Count 6.3 K/mm3 (4.5-10.0)
[2024-04-29] MEDS: AMIODARONE HCL 200 MG TABLET PO (09:57)
[2024-04-29] MEDS: ATORVASTATIN 40 MG TABLET PO (09:57)
[2024-04-29] MEDS: MULTIVITAMINS /C LUTEIN (CENTRUM SILVER) TABLET *BKC 1 TAB PO (09:57)
[2024-04-29] MEDS: SERTRALINE HCL 50 MG TABLET 100 MG PO (09:58)
[2024-04-29] MEDS: METOPROLOL SUCCINATE EXT REL 25 MG TABCR PO (09:58)
[2024-04-29] MEDS: ASPIRIN 81 MG CHEWABLE TABLET PO (09:58)
[2024-04-29] MEDS: CALCITONIN NASAL 200 UNITS/SPRAY 3.7 ML BOTTLE 1 SPRAY NASAL (09:59)
--- NOTE | 2024-04-29 13:34 | PCNFU ---
Nutrition Follow-Up Complete: Severe protein calorie malnutrition related to chronic loss of appetite, dementia as evidenced by intakes <75% meals >1 month; weight loss 8%/1 month; mild muscle wasting to temporalis, clavicles; moderate fat loss to buccal fat pads goal: Adequate PO intake at least 75% meals and supplements Patient is progressing towards goal. We will continue current goal. Pt current nutrition is Heart Healthy with Ensure Enlive. Last recorded weight is 93.3 kg, stable since admit. Bowel Motility: +BM reported 04/26 Labs Reviewed: BUN 37, GFR 54, Alb 3.4 Meds Noted:Lipitor, MVI Skin: WNL Additional Notes: Patient remains on a heart healthy diet. Intake has been fair about 50% reported today. Patient is consuming the diet supplements of Ensure Enlive (350 kcal/20 gm protein). Agree with diet orders. Monitoring intakes, weights, labs, supplement tolerance, plan of care Follow up in 5 days
--- NOTE | 2024-04-29 13:54 | PM.IMPN ---
Progress Note: A&P Assessment and Plan (1) Supratherapeutic INR: Code(s): R79.1 - Abnormal coagulation profile Status: Acute Assessment and Plan: Patient was recently transitioned to Xarelto from warfarin. Coags prolonged on admission, INR noted to be 8.6. He received 2.5 mg phytonadione in the ED. - INR 1.3 on am labs, restarted Xarelto - Trend coags daily with morning labs - Monitor for signs of active bleeding - Current INR is 2.7 04/28/24 - Continue to trend INR - Check INR in the am (2) Falls: Code(s): W19.XXXA - Unspecified fall, initial encounter Status: Acute Assessment and Plan: Patient reports frequent falls. He states that his legs just give out. He denies lightheadedness, dizziness, or syncope prior to falls. He continues to work with therapy at [facility]. - PT/OT - Fall precautions (3) Stage 3b chronic kidney disease: Code(s): N18.32 - Chronic kidney disease, stage 3b Status: Chronic Assessment and Plan: Chronic, BUN/Cr at baseline. - Monitor with daily labs - I/O - BUN/Cr 37/1.30 - Continue to trend (4) Chronic anemia: Code(s): D64.9 - Anemia, unspecified Status: Acute Assessment and Plan: Chronic, H/H at baseline. No signs of active bleeding. - Continue iron supplementation - Monitor for signs of bleeding as INR is supratherapeutic - H/H 9.6/30.6 - Continue to trend (5) Atrial fibrillation: Code(s): I48.91 - Unspecified atrial fibrillation Status: Acute Assessment and Plan: Chronic, rate controlled. - Continue amiodarone 200 mg daily and metoprolol 25 mg daily - Restarted Xarelto - Continue to current therapy (6) Hypertension: Code(s): I10 - Essential (primary) hypertension Status: Acute Assessment and Plan: Chronic, stable on home medications. - Metoprolol 25 mg daily - Monitor - BP stable at 143/81 - Continue to trend (7) Chronic diastolic heart failure: Code(s): I50.32 - Chronic diastolic (congestive) heart failure Status: Acute Assessment and Plan: Chronic, not in acute exacerbation. (8) Acute metabolic encephalopathy: Code(s): G93.41 - Metabolic encephalopathy Status: Acute Assessment and Plan: The patient presented to the hospital from [facility] for evaluation of altered mental status over last 24 hours. Etiology is not entirely clear. He remains afebrile with a normal WBC count and no findings of infection on chest x-ray or urinalysis. Brain CT was without acute findings. Of note patient has been to several different facilities in the past few months. Possible that this is underlying dementia being exacerbated. - AOx2 (person, place) on exam this morning. He does become a bit confused during assessment and talks to himself some, however daughter says this has been ongoing since being moved to [facility]. - Urine culture: No growth - Head CT: No acute intracranial findings - Chest XR: No acute cardiopulmonary process - UDS negative - TSH, ammonia, B12 and folate WNL - Holding baclofen, consider holding gabapentin - Monitor - Seems to be resolved Time Spent With Patient Time: 41 minutes Time with patient: Greater than 35 minutes Subjective Date/time seen: 04/29/24 13:54 Interval history: 79-year-old male with history of atrial fibrillation on chronic anticoagulation, diastolic congestive heart failure, coronary artery disease, hypertension, chronic kidney disease, chronic respiratory failure on 2 L, pulmonary embolism, melanoma, and testicular cancer who presented to the emergency department via EMS from [facility] for evaluation of altered mental status. Patient is currently lying in bed. He really is ready to go. He denies any current chest pain, shortness a breath, nausea, vomiting, diarrhea constipation. Continue to work with patient to maintain act
[2024-04-29] MEDS: RIVAROXABAN 15 MG TABLET PO (17:27)
[2024-04-29] MEDS: ACETAMINOPHEN 325 MG TABLET 650 MG PO (17:30)
[2024-04-30] VITALS (14 sets, daily range): BP systolic 121–145; BP diastolic 51–68; PULSE 71–89; RESP 16–18; TEMP 36.4–36.6; O2SAT 90–97
[2024-04-30 04:40] LABS: Basophils Absolute Auto 0.1 K/mm3 (0.0-0.1); Basophils Percent Auto 0.9 % (0.2-1.2); Eosinophils Absolute Auto 0.2 K/mm3 (0-0.3); Eosinophils Percent Auto 3.9 % (0-4.4); Hematocrit 29.4 % (42.0-52.0); Hemoglobin 9.4 g/dL (14.0-18.0); Immature Granulocyte Absolute 0.03 K/mm3 (0.00-0.031); Immature Granulocyte Percent A 0.5 % (0-0.5); Lymphocytes Absolute Auto 0.94 K/mm3 (0.9-3.2); Lymphocytes Percent Auto 16.7 % (18.3-44.2); Mean Corpuscular Hemoglobin 30.8 pg (26-34); Mean Corpuscular Volume 96.4 fl (80-100); Mean Platelet Volume 9.9 fl (7.4-10.4); Monocytes Absolute Auto 0.6 K/mm3 (0.1-0.6); Neutrophils Absolute Auto 3.8 K/mm3 (1.3-6.7); Platelet Count Result 233 k/mm3 (150-375); Red Blood Count 3.05 M/mm3 (4.6-6.20); Red Cell Distribution Width 15.7 % (11.5-14.5); White Blood Count 5.6 K/mm3 (4.5-10.0)
[2024-04-30 04:50] LABS: INR 2.2; Prothrombin Time 25.5 Seconds (11.1-14.7)
[2024-04-30 04:51] LABS: Alanine Aminotransferase 83 U/L (6-50); Albumin Level 3.3 g/dL (3.5-5.1); Alkaline Phosphatase 104 U/L (38-126); Anion Gap 2 mmol/L (4-12); Aspartate Amino Transferase 85 U/L (17-59); Bilirubin,Total 0.7 mg/dL (0.2-1.3); Blood Urea Nitrogen 40 mg/dL (9-20); Carbon Dioxide 33 mmol/L (22-30); Chloride 105 mmol/L (98-107); Estimated CRCL calculation 43 ml/min; Estimated Glomerular Filt Rate 49; Glucose 108 mg/dL (65-110); Magnesium 1.7 mg/dL (1.6-2.3); Sodium 140 mmol/L (137-145)
[2024-04-30] MEDS: ATORVASTATIN 40 MG TABLET PO (08:56)
[2024-04-30] MEDS: ASPIRIN 81 MG CHEWABLE TABLET PO (08:56)
[2024-04-30] MEDS: AMIODARONE HCL 200 MG TABLET PO (08:56)
[2024-04-30] MEDS: MULTIVITAMINS /C LUTEIN (CENTRUM SILVER) TABLET *BKC 1 TAB PO (08:57)
[2024-04-30] MEDS: SERTRALINE HCL 50 MG TABLET 100 MG PO (08:57)
[2024-04-30] MEDS: METOPROLOL SUCCINATE EXT REL 25 MG TABCR PO (08:57)
[2024-04-30] MEDS: CALCITONIN NASAL 200 UNITS/SPRAY 3.7 ML BOTTLE 1 SPRAY NASAL (08:58)
[2024-04-30] MEDS: IPRATROPIUM BR 0.02% INH SOLN 0.5 MG/2.5 ML VIAL 0.2 MG INHALATION ×2 (09:24→21:02)
--- NOTE | 2024-04-30 12:50 | PM.IMPN ---
Progress Note: A&P Assessment and Plan (1) Acute metabolic encephalopathy: Code(s): G93.41 - Metabolic encephalopathy Status: Acute Assessment and Plan: Resolved; this was the reason the patient presented to the hospital - Urine culture: No growth - Head CT: No acute intracranial findings - Chest XR: No acute cardiopulmonary process - UDS negative - TSH, ammonia, B12 and folate WNL - Holding baclofen and gabapentin -ammonia negative -could be due to patient recently switching facilities/new environment -family at bedside states he is back to his baseline (2) Supratherapeutic INR: Code(s): R79.1 - Abnormal coagulation profile Status: Acute Assessment and Plan: Noted on admission -patient was recently transitioned from warfarin to Xarelto -reversal given in the emergency room -monitor daily labs -continue Xarelto for AFib, renally dosed (3) Falls: Code(s): W19.XXXA - Unspecified fall, initial encounter Status: Acute Assessment and Plan: Patient had a hospital stay for pneumonia couple months ago and has been overall weak since -he was at [facility] and is awaiting placement today -I spoke with care coordination and we are awaiting insurance authorization. Plan to discharge once authorization has come through (4) Stage 3b chronic kidney disease: Code(s): N18.32 - Chronic kidney disease, stage 3b Status: Chronic Assessment and Plan: Chronic and known -monitor with daily labs (5) Chronic anemia: Code(s): D64.9 - Anemia, unspecified Status: Acute Assessment and Plan: Stable (6) Atrial fibrillation: Code(s): I48.91 - Unspecified atrial fibrillation Status: Acute Assessment and Plan: Continue Eliquis and amiodarone -spoke with the patient and family extensively about the amiodarone and his elevated liver enzymes. I do suggest a talk to his apprise counselor soon about the plan of care for rhythm control as the amiodarone is likely causing increased liver enzymes and he may need an alternative. They have agreed to reach out to his apprise counselor at [facility] (7) Hypertension: Code(s): I10 - Essential (primary) hypertension Status: Acute Assessment and Plan: Last blood pressure 145/51 -continue metoprolol (8) Chronic diastolic heart failure: Code(s): I50.32 - Chronic diastolic (congestive) heart failure Status: Acute Assessment and Plan: No evidence of heart failure on exam (9) Transaminitis: Code(s): R74.01 - Elevation of levels of liver transaminase levels Status: Acute Assessment and Plan: Noted on labs -ammonia negative, not thought to be causing his altered mental status -they are persistently elevated but flat. Patient is on amiodarone, see above. They are going to follow up with his apprise counselor to see if he can be placed on another medication due to the side effect of amiodarone -will check CK and hepatitis panel with tomorrow's labs Plan Patient had crackles today on exam, no pneumonia symptoms. Will order incentive spirometer Time Spent With Patient Time with patient: 25 - 35 minutes Subjective Date/time seen: 04/30/24 12:50 Interval history: Pt is a 79-year-old male here for altered mental status. Patient was seen with family at bedside. He states he is doing well and has no complaints today. Family states he is back to his baseline and doing well. Patient denies chest pain, shortness of breath, fevers, chills, nausea, tremors or vomiting. He does have a decreased appetite. His last bowel movement was a couple days ago. He has been walking with a walker but not very much. We had a long conversation about his liver enzymes and his amiodarone. He sees a apprise counselor at [facility] and they will follow up with him about the plan of care with the amiodaron
[2024-04-30] MEDS: RIVAROXABAN 15 MG TABLET PO (17:24)
[2024-04-30] MEDS: LACTATED RINGERS 1,000 ML 100 ML IV CONT (17:29)
[2024-05-01] VITALS (12 sets, daily range): BP systolic 114–144; BP diastolic 52–68; PULSE 75–88; RESP 16–18; TEMP 36.4–36.8; O2SAT 90–98
[2024-05-01 01:38] LABS: Hepatitis B Surface Antigen Negative (Negative)
[2024-05-01 01:43] LABS: HAV RESULT Negative (Negative); Hepatitis B Core IgM Result Negative (Negative)
[2024-05-01 01:55] LABS: Hepatitis C Virus Antibody Negative (Negative)
[2024-05-01 05:14] LABS: Hematocrit 29.9 % (42.0-52.0); Hemoglobin 9.1 g/dL (14.0-18.0); Mean Corpuscular HGB Conc 30.4 g/dl (32-36); Mean Corpuscular Hemoglobin 30.2 pg (26-34); Mean Corpuscular Volume 99.3 fl (80-100); Mean Platelet Volume 10.5 fl (7.4-10.4); Platelet Count Result 236 k/mm3 (150-375); Red Blood Count 3.01 M/mm3 (4.6-6.20); Red Cell Distribution Width 15.6 % (11.5-14.5)
[2024-05-01 05:16] LABS: Alanine Aminotransferase 93 U/L (6-50); Albumin Level 3.2 g/dL (3.5-5.1); Alkaline Phosphatase 97 U/L (38-126); Anion Gap 6 mmol/L (4-12); Aspartate Amino Transferase 96 U/L (17-59); Bilirubin,Total 0.6 mg/dL (0.2-1.3); Blood Urea Nitrogen 39 mg/dL (9-20); Calcium 8.5 mg/dL (8.4-10.2); Carbon Dioxide 27 mmol/L (22-30); Chloride 106 mmol/L (98-107); Creatine Kinase 29 U/L (55-170); Estimated CRCL calculation 43 ml/min; Estimated Glomerular Filt Rate 49; Glucose 90 mg/dL (65-110); Potassium 3.9 mmol/L (3.4-5.0); Sodium 139 mmol/L (137-145)
[2024-05-01 05:27] LABS: INR 2.1; Prothrombin Time 24.1 Seconds (11.1-14.7)
[2024-05-01] MEDS: IPRATROPIUM BR 0.02% INH SOLN 0.5 MG/2.5 ML VIAL 0.2 MG INHALATION ×2 (07:31→21:00)
[2024-05-01] MEDS: ATORVASTATIN 40 MG TABLET PO (08:38)
[2024-05-01] MEDS: MULTIVITAMINS /C LUTEIN (CENTRUM SILVER) TABLET *BKC 1 TAB PO (08:38)
[2024-05-01] MEDS: AMIODARONE HCL 200 MG TABLET PO (08:38)
[2024-05-01] MEDS: METOPROLOL SUCCINATE EXT REL 25 MG TABCR PO (08:38)
[2024-05-01] MEDS: ASPIRIN 81 MG CHEWABLE TABLET PO (08:39)
[2024-05-01] MEDS: SERTRALINE HCL 50 MG TABLET 100 MG PO (08:39)
[2024-05-01] MEDS: CALCITONIN NASAL 200 UNITS/SPRAY 3.7 ML BOTTLE 1 SPRAY NASAL (08:40)
--- NOTE | 2024-05-01 09:53 | P.PNIM_ITS ---
Progress Note: A&P Assessment and Plan (1) Acute metabolic encephalopathy: Code(s): G93.41 - Metabolic encephalopathy Status: Acute Assessment and Plan: 04/30/24: Resolved; this was the reason the patient presented to the hospital - Urine culture: No growth - Head CT: No acute intracranial findings - Chest XR: No acute cardiopulmonary process - UDS negative - TSH, ammonia, B12 and folate WNL - Holding baclofen and gabapentin -ammonia negative -could be due to patient recently switching facilities/new environment -family at bedside states he is back to his baseline 05/01/24: * (2) Supratherapeutic INR: Code(s): R79.1 - Abnormal coagulation profile Status: Acute Assessment and Plan: 05/01/24: * Initial INR on 04/24/2024 was 8.6, now down to 2.1 * Continue with renally dosed Xarelto (3) Falls: Code(s): W19.XXXA - Unspecified fall, initial encounter Status: Acute Assessment and Plan: 05/01/24: * Waiting on insurance authorization to return to [facility] (4) Stage 3b chronic kidney disease: Code(s): N18.32 - Chronic kidney disease, stage 3b Status: Chronic Assessment and Plan: 05/01/24: * Creatinine 1.4, EGFR 49 * Continue to trend (5) Chronic anemia: Code(s): D64.9 - Anemia, unspecified Status: Acute Assessment and Plan: 05/01/24: * Has had testicular cancer, malignant melanoma, stage IIIB chronic kidney disea se in his history. Likely secondary to these conditions. * Hemoglobin 9.1 * Vitamin B12 909, folate greater than 20, TSH 2.250, iron 48, ferritin 103, TIBC 270 * Continue iron supplement (6) Atrial fibrillation: Code(s): I48.91 - Unspecified atrial fibrillation Status: Acute Assessment and Plan: Continue Eliquis and amiodarone -spoke with the patient and family extensively about the amiodarone and his elevated liver enzymes. I do suggest a talk to his welder manufacture soon about the plan of care for rhythm control as the amiodarone is likely causing increased liver enzymes and he may need an alternative. They have agreed to reach out to his welder manufacture at [facility] 6/23/24: * Continue amiodarone and Xarelto renally dosed (7) Hypertension: Code(s): I10 - Essential (primary) hypertension Status: Acute Assessment and Plan: 05/01/24: * Continue metoprolol * No change to current treatment plan (8) Chronic diastolic heart failure: Code(s): I50.32 - Chronic diastolic (congestive) heart failure Status: Acute Assessment and Plan: 05/01/24: * On metoprolol however this could be for rate control with his AFib, no echo or cardiology note to review to confirm diagnosis (9) Transaminitis: Code(s): R74.01 - Elevation of levels of liver transaminase levels Status: Acute Assessment and Plan: 05/01/24: * May be due to the side effect of amiodarone, patient will need to follow up with welder manufacture on an outpatient basis * Total CK 29, hepatitis panel was negative * AST 96, ALT 93 Time Spent With Patient Time with patient: 25 - 35 minutes Subjective Date/time seen: 05/01/24 09:53 Interval history: This is a 79-year-old male who presented to the hospital on 04/24/2024 with altered mental status. Workup in the hospital includes chest x-r
--- NOTE | 2024-05-01 09:53 | PM.IMPN ---
Progress Note: A&P Assessment and Plan (1) Acute metabolic encephalopathy: Code(s): G93.41 - Metabolic encephalopathy Status: Acute Assessment and Plan: 04/30/24: Resolved; this was the reason the patient presented to the hospital - Urine culture: No growth - Head CT: No acute intracranial findings - Chest XR: No acute cardiopulmonary process - UDS negative - TSH, ammonia, B12 and folate WNL - Holding baclofen and gabapentin -ammonia negative -could be due to patient recently switching facilities/new environment -family at bedside states he is back to his baseline 05/01/24: (2) Supratherapeutic INR: Code(s): R79.1 - Abnormal coagulation profile Status: Acute Assessment and Plan: 05/01/24: Initial INR on 04/24/2024 was 8.6, now down to 2.1 Continue with renally dosed Xarelto (3) Falls: Code(s): W19.XXXA - Unspecified fall, initial encounter Status: Acute Assessment and Plan: 05/01/24: Waiting on insurance authorization to return to [facility] (4) Stage 3b chronic kidney disease: Code(s): N18.32 - Chronic kidney disease, stage 3b Status: Chronic Assessment and Plan: 05/01/24: Creatinine 1.4, EGFR 49 Continue to trend (5) Chronic anemia: Code(s): D64.9 - Anemia, unspecified Status: Acute Assessment and Plan: 05/01/24: Has had testicular cancer, malignant melanoma, stage IIIB chronic kidney disease in his history. Likely secondary to these conditions. Hemoglobin 9.1 Vitamin B12 909, folate greater than 20, TSH 2.250, iron 48, ferritin 103, TIBC 270 Continue iron supplement (6) Atrial fibrillation: Code(s): I48.91 - Unspecified atrial fibrillation Status: Acute Assessment and Plan: Continue Eliquis and amiodarone -spoke with the patient and family extensively about the amiodarone and his elevated liver enzymes. I do suggest a talk to his scrap sawyer soon about the plan of care for rhythm control as the amiodarone is likely causing increased liver enzymes and he may need an alternative. They have agreed to reach out to his scrap sawyer at [facility] 05/01/24: Continue amiodarone and Xarelto renally dosed (7) Hypertension: Code(s): I10 - Essential (primary) hypertension Status: Acute Assessment and Plan: 05/01/24: Continue metoprolol No change to current treatment plan (8) Chronic diastolic heart failure: Code(s): I50.32 - Chronic diastolic (congestive) heart failure Status: Acute Assessment and Plan: 05/01/24: On metoprolol however this could be for rate control with his AFib, no echo or cardiology note to review to confirm diagnosis (9) Transaminitis: Code(s): R74.01 - Elevation of levels of liver transaminase levels Status: Acute Assessment and Plan: 05/01/24: May be due to the side effect of amiodarone, patient will need to follow up with scrap sawyer on an outpatient basis Total CK 29, hepatitis panel was negative AST 96, ALT 93 Time Spent With Patient Time with patient: 25 - 35 minutes Subjective Date/time seen: 05/01/24 09:53 Interval history: This is a 79-year-old male who presented to the hospital on 04/24/2024 with altered mental status. Workup in the hospital includes chest x-ray which was negative. CT of the head x2 was negative. Initial labs showed a white blood cell count of 6.4, hemoglobin 9.0, ESR greater than 140, INR was 8.6, BUN 43, creatinine 1.7, EGFR 39, iron 48, TIBC 270, ferritin 103, AST 74, ALT 48, ammonia was less than 9, vitamin B12 909, TSH 2.25, folate greater than 20, UA was also obtained which shown 1+ urine protein, trace ketone, 1+ urine bili, 3-5 urine RBC, 6-10 urine WBC. The urine drug screen was negative. Hepatitis panel was negative. On examination today patient is alert, lying in the bed. Family is at the
[2024-05-01] MEDS: RIVAROXABAN 15 MG TABLET PO (16:38)
[2024-05-02] VITALS (10 sets, daily range): BP systolic 111–133; BP diastolic 54–69; PULSE 70–83; RESP 16–24; TEMP 36.6–36.9; O2SAT 90–93
[2024-05-02 05:01] LABS: Basophils Absolute Auto 0.1 K/mm3 (0.0-0.1); Basophils Percent Auto 0.8 % (0.2-1.2); Eosinophils Absolute Auto 0.3 K/mm3 (0-0.3); Eosinophils Percent Auto 4.2 % (0-4.4); Hematocrit 30.6 % (42.0-52.0); Hemoglobin 9.5 g/dL (14.0-18.0); Immature Granulocyte Absolute 0.02 K/mm3 (0.00-0.031); Immature Granulocyte Percent A 0.3 % (0-0.5); Lymphocytes Absolute Auto 0.91 K/mm3 (0.9-3.2); Lymphocytes Percent Auto 15.2 % (18.3-44.2); Mean Corpuscular Hemoglobin 30.3 pg (26-34); Mean Corpuscular Volume 97.5 fl (80-100); Mean Platelet Volume 9.5 fl (7.4-10.4); Monocytes Absolute Auto 0.6 K/mm3 (0.1-0.6); Monocytes Percent Auto 9.5 % (2.6-8.5); Neutrophils Absolute Auto 4.2 K/mm3 (1.3-6.7); Platelet Count Result 235 k/mm3 (150-375); Red Blood Count 3.14 M/mm3 (4.6-6.20); Red Cell Distribution Width 15.6 % (11.5-14.5)
[2024-05-02 05:16] LABS: Alanine Aminotransferase 110 U/L (6-50); Albumin Level 3.2 g/dL (3.5-5.1); Alkaline Phosphatase 107 U/L (38-126); Anion Gap 5 mmol/L (4-12); Aspartate Amino Transferase 118 U/L (17-59); Bilirubin,Total 0.8 mg/dL (0.2-1.3); Blood Urea Nitrogen 35 mg/dL (9-20); Calcium 8.7 mg/dL (8.4-10.2); Carbon Dioxide 29 mmol/L (22-30); Chloride 105 mmol/L (98-107); Estimated CRCL calculation 40 ml/min; Estimated Glomerular Filt Rate 45; Glucose 84 mg/dL (65-110); Magnesium 1.7 mg/dL (1.6-2.3); Potassium 4.3 mmol/L (3.4-5.0); Sodium 139 mmol/L (137-145)
[2024-05-02] MEDS: IPRATROPIUM BR 0.02% INH SOLN 0.5 MG/2.5 ML VIAL 0.2 MG INHALATION ×2 (06:59→20:31)
--- NOTE | 2024-05-02 07:19 | PM.DS ---
DS: Admitting Diagnosis Discharge Date 05/02/24 Admitting Diagnosis Altered mental status Supratherapeutic INR Stage 3B chronic kidney disease Chronic anemia Atrial fibrillation Chronic diastolic heart failure chronic anticoagulation hypertension DS: Discharge Diagnosis Discharge Diagnosis (1) Acute metabolic encephalopathy: Code(s): G93.41 - Metabolic encephalopathy Status: Acute (2) Supratherapeutic INR: Code(s): R79.1 - Abnormal coagulation profile Status: Acute (3) Falls: Code(s): W19.XXXA - Unspecified fall, initial encounter Status: Acute (4) Stage 3b chronic kidney disease: Code(s): N18.32 - Chronic kidney disease, stage 3b Status: Chronic (5) Chronic anemia: Code(s): D64.9 - Anemia, unspecified Status: Acute (6) Atrial fibrillation: Code(s): I48.91 - Unspecified atrial fibrillation Status: Acute (7) Hypertension: Code(s): I10 - Essential (primary) hypertension Status: Acute (8) Chronic diastolic heart failure: Code(s): I50.32 - Chronic diastolic (congestive) heart failure Status: Acute (9) Transaminitis: Code(s): R74.01 - Elevation of levels of liver transaminase levels Status: Acute DS: Summary Hospital Course Reason for hospitalization: Altered mental status Supratherapeutic INR Stage 3B chronic kidney disease Chronic anemia Atrial fibrillation Chronic diastolic heart failure chronic anticoagulation hypertension Hospital Course: This is a 79-year-old male who presented to the hospital on 04/24/2024 with altered mental status. Workup in the hospital includes chest x-ray which was negative. CT of the head x2 was negative. Initial labs showed a white blood cell count of 6.4, hemoglobin 9.0, ESR greater than 140, INR was 8.6, BUN 43, creatinine 1.7, EGFR 39, iron 48, TIBC 270, ferritin 103, AST 74, ALT 48, ammonia was less than 9, vitamin B12 909, TSH 2.25, folate greater than 20, UA was also obtained which shown 1+ urine protein, trace ketone, 1+ urine bili, 3-5 urine RBC, 6-10 urine WBC. The urine drug screen was negative. Hepatitis panel was negative. On examination today patient is alert, lying in the bed. Family is at the bedside. Patient denies any fever, chills, nausea, vomiting, diarrhea, abdominal pain, chest pain, shortness a breath. Daughter states patient has not had good oral intake of food or fluid since he has been here. Nursing reports that he has been orthostatic with his blood pressures overnight and this morning requiring IV fluid bolus. Patient encouraged to increase po intake of food and fluid. He does get supplements on his tray and I encouraged him to drink those at the very least. Labs today reveal hemoglobin of 9.1, INR 2.1,-creatinine 1.4, e GFR 49, AST 96, ALT 93, total CK 29. PT and OT working with patient. Case coordination working on placement, awaiting authorization. 05/02/24: Patient denies any new complaints today. Labs today reveal Hgb 9.5, creatinine 1.50, eGFR 45, AST 118, ALT 110. Patient given 1L NS bolus for hydration. He continues to have poor intake. Final diagnosis: Altered mental status, supratherapeutic INR, chronic anticoagulation Status at Discharge Functional status at discharge: uses cane/walker Overall status at discharge: patient is progressing back to baseline Time Spent with Patient Time attestation: Total time spent providing and/or coordinating discharge services: Time spent: Greater than 30 minutes Exam Narrative: General: In no acute distress, well nourished Head: atraumatic, no encephalopathy Eyes: EOMI, PERRLA, sclera clear ENT: moist mucous membranes, nasal passages clear Neck: supple, no JVD, no adenopathy, trachea midline Cardiac: Normal S1 and S2. No murmur, gallops or friction rubs, peripheral pulses intact. Respiratory: Lungs clear to auscultation, no adventitious lung sounds, currently on room air Gastrointestinal: soft, n
[2024-05-02] MEDS: SODIUM CHLORIDE 0.9% IV 1,000 ML 250 ML IV CONT (09:07)
[2024-05-02] MEDS: METOPROLOL SUCCINATE EXT REL 25 MG TABCR PO (09:13)
[2024-05-02] MEDS: CALCITONIN NASAL 200 UNITS/SPRAY 3.7 ML BOTTLE 1 SPRAY NASAL (09:13)
[2024-05-02] MEDS: SERTRALINE HCL 50 MG TABLET 100 MG PO (09:14)
[2024-05-02] MEDS: AMIODARONE HCL 200 MG TABLET PO (09:14)
[2024-05-02] MEDS: ATORVASTATIN 40 MG TABLET PO (09:14)
[2024-05-02] MEDS: ASPIRIN 81 MG CHEWABLE TABLET PO (09:14)
[2024-05-02] MEDS: MULTIVITAMINS /C LUTEIN (CENTRUM SILVER) TABLET *BKC 1 TAB PO (09:14)
[2024-05-02] MEDS: ONDANSETRON INJ 4 MG/2 ML VIAL IV PUSH (10:38)
--- NOTE | 2024-05-02 14:35 | P.PNIM_ITS ---
Progress Note: A&P Assessment and Plan (1) Acute metabolic encephalopathy: Code(s): G93.41 - Metabolic encephalopathy Status: Acute Assessment and Plan: 04/30/24: Resolved; this was the reason the patient presented to the hospital - Urine culture: No growth - Head CT: No acute intracranial findings - Chest XR: No acute cardiopulmonary process - UDS negative - TSH, ammonia, B12 and folate WNL - Holding baclofen and gabapentin -ammonia negative -could be due to patient recently switching facilities/new environment -family at bedside states he is back to his baseline 05/01/24: * continue neuro checks 05/02/24: * No change to current treatment plan (2) Supratherapeutic INR: Code(s): R79.1 - Abnormal coagulation profile Status: Acute Assessment and Plan: 05/01/24: * Initial INR on 04/24/2024 was 8.6, now down to 2.1 * Continue with renally dosed Xarelto 05/02/24: * Continue with current treatment plan (3) Falls: Code(s): W19.XXXA - Unspecified fall, initial encounter Status: Acute Assessment and Plan: 05/01/24: * Waiting on insurance authorization to return to [facility] 05/02/24: * No change (4) Stage 3b chronic kidney disease: Code(s): N18.32 - Chronic kidney disease, stage 3b Status: Chronic Assessment and Plan: 05/01/24: * Creatinine 1.4, EGFR 49 * Continue to trend 05/02/24: * Creatinine 1.50, eGFR 45 * Likely rise is due to patient not eating or drinking, will give 1L fluid bolus (5) Chronic anemia: Code(s): D64.9 - Anemia, unspecified Status: Acute Assessment and Plan: 05/01/24: * Has had testicular cancer, malignant melanoma, stage IIIB chronic kidney disease in his history. Likely secondary to these conditions. * Hemoglobin 9.1 * Vitamin B12 909, folate greater than 20, TSH 2.250, iron 48, ferritin 103, TIBC 270 * Continue iron supplement 05/02/24: * Hgb 9.5 today * No change to current treatment plan (6) Atrial fibrillation: Code(s): I48.91 - Unspecified atrial fibrillation Status: Acute Assessment and Plan: Continue Eliquis and amiodarone -spoke with the patient and family extensively about the amiodarone and his elevated liver enzymes. I do suggest a talk to his detective sergeant soon about the plan of care for rhythm control as the amiodarone is likely causing increased liver enzymes and he may need an alternative. They have agreed to reach out to his detective sergeant at [facility] 05/01/24: * Continue amiodarone and Xarelto renally dosed 05/02/24: * No change to current treatment plan (7) Hypertension: Code(s): I10 - Essential (primary) hypertension Status: Acute Assessment and Plan: 05/01/24: * Continue metoprolol * No change to current treatment plan 05/02/24: * No change to current treatment plan (8) Chronic diastolic heart failure: Code(s): I50.32 - Chronic diastolic (congestive) heart failure Status: Acute Assessment and Plan: 05/01/24: * On metoprolol however this could be for rate control with his AFib, no echo or cardiology note to review to confirm diagnosis 05/02/24: * No change to current treatment plan (9) Transaminitis: Code(s): R74.01 - Elevation of levels of liver transaminase levels St
--- NOTE | 2024-05-02 14:35 | PM.IMPN ---
Progress Note: A&P Assessment and Plan (1) Acute metabolic encephalopathy: Code(s): G93.41 - Metabolic encephalopathy Status: Acute Assessment and Plan: 04/30/24: Resolved; this was the reason the patient presented to the hospital - Urine culture: No growth - Head CT: No acute intracranial findings - Chest XR: No acute cardiopulmonary process - UDS negative - TSH, ammonia, B12 and folate WNL - Holding baclofen and gabapentin -ammonia negative -could be due to patient recently switching facilities/new environment -family at bedside states he is back to his baseline 05/01/24: continue neuro checks 05/02/24: No change to current treatment plan (2) Supratherapeutic INR: Code(s): R79.1 - Abnormal coagulation profile Status: Acute Assessment and Plan: 05/01/24: Initial INR on 04/24/2024 was 8.6, now down to 2.1 Continue with renally dosed Xarelto 05/02/24: Continue with current treatment plan (3) Falls: Code(s): W19.XXXA - Unspecified fall, initial encounter Status: Acute Assessment and Plan: 05/01/24: Waiting on insurance authorization to return to [facility] 05/02/24: No change (4) Stage 3b chronic kidney disease: Code(s): N18.32 - Chronic kidney disease, stage 3b Status: Chronic Assessment and Plan: 05/01/24: Creatinine 1.4, EGFR 49 Continue to trend 05/02/24: Creatinine 1.50, eGFR 45 Likely rise is due to patient not eating or drinking, will give 1L fluid bolus (5) Chronic anemia: Code(s): D64.9 - Anemia, unspecified Status: Acute Assessment and Plan: 05/01/24: Has had testicular cancer, malignant melanoma, stage IIIB chronic kidney disease in his history. Likely secondary to these conditions. Hemoglobin 9.1 Vitamin B12 909, folate greater than 20, TSH 2.250, iron 48, ferritin 103, TIBC 270 Continue iron supplement 05/02/24: Hgb 9.5 today No change to current treatment plan (6) Atrial fibrillation: Code(s): I48.91 - Unspecified atrial fibrillation Status: Acute Assessment and Plan: Continue Eliquis and amiodarone -spoke with the patient and family extensively about the amiodarone and his elevated liver enzymes. I do suggest a talk to his payroll administrator soon about the plan of care for rhythm control as the amiodarone is likely causing increased liver enzymes and he may need an alternative. They have agreed to reach out to his payroll administrator at [facility] 05/01/24: Continue amiodarone and Xarelto renally dosed 05/02/24: No change to current treatment plan (7) Hypertension: Code(s): I10 - Essential (primary) hypertension Status: Acute Assessment and Plan: 05/01/24: Continue metoprolol No change to current treatment plan 05/02/24: No change to current treatment plan (8) Chronic diastolic heart failure: Code(s): I50.32 - Chronic diastolic (congestive) heart failure Status: Acute Assessment and Plan: 05/01/24: On metoprolol however this could be for rate control with his AFib, no echo or cardiology note to review to confirm diagnosis 05/02/24: No change to current treatment plan (9) Transaminitis: Code(s): R74.01 - Elevation of levels of liver transaminase levels Status: Acute Assessment and Plan: 05/01/24: May be due to the side effect of amiodarone, patient will need to follow up with payroll administrator on an outpatient basis Total CK 29, hepatitis panel was negative AST 96, ALT 93 05/02/24: AST 118, ALT 110 Will hold atorvastatin although total CK was 29 yesterday Will get US of the abdomen and check copper level Will continue to trend Time Spent With Patient Time with patient: 25 - 35 minutes Subjective Date/time seen: 05/02/24 14:35 Interval history: Interval history: This is a 79-year-old male who presented to the
[2024-05-02] MEDS: RIVAROXABAN 15 MG TABLET PO (17:26)
[2024-05-02] MEDS: droNABinol (*CRX) 2.5 MG CAPSULE PO (17:26)
[2024-05-03] VITALS (8 sets, daily range): BP systolic 114–135; BP diastolic 53–58; PULSE 72–84; RESP 16–20; TEMP 36.4–36.8; O2SAT 90–93
[2024-05-03 04:54] LABS: Basophils Absolute Auto 0.1 K/mm3 (0.0-0.1); Eosinophils Absolute Auto 0.3 K/mm3 (0-0.3); Eosinophils Percent Auto 4.3 % (0-4.4); Hematocrit 30.2 % (42.0-52.0); Immature Granulocyte Absolute 0.02 K/mm3 (0.00-0.031); Immature Granulocyte Percent A 0.3 % (0-0.5); Lymphocytes Percent Auto 17.2 % (18.3-44.2); Mean Corpuscular HGB Conc 29.8 g/dl (32-36); Mean Corpuscular Hemoglobin 29.8 pg (26-34); Mean Platelet Volume 10.6 fl (7.4-10.4); Monocytes Absolute Auto 0.6 K/mm3 (0.1-0.6); Monocytes Percent Auto 9.8 % (2.6-8.5); Neutrophils Absolute Auto 3.9 K/mm3 (1.3-6.7); Neutrophils Percent Auto 67.4 % (45.5-73.1); Platelet Count Result 242 k/mm3 (150-375); Red Blood Count 3.02 M/mm3 (4.6-6.20); Red Cell Distribution Width 15.7 % (11.5-14.5); White Blood Count 5.8 K/mm3 (4.5-10.0)
[2024-05-03 05:13] LABS: Alanine Aminotransferase 134 U/L (6-50); Alkaline Phosphatase 103 U/L (38-126); Anion Gap 4 mmol/L (4-12); Aspartate Amino Transferase 135 U/L (17-59); Bilirubin,Total 0.7 mg/dL (0.2-1.3); Blood Urea Nitrogen 36 mg/dL (9-20); Calcium 8.5 mg/dL (8.4-10.2); Carbon Dioxide 29 mmol/L (22-30); Chloride 107 mmol/L (98-107); Estimated CRCL calculation 38 ml/min; Estimated Glomerular Filt Rate 42; Glucose 75 mg/dL (65-110); Potassium 4.3 mmol/L (3.4-5.0); Sodium 140 mmol/L (137-145)
[2024-05-03 05:19] LABS: Anisocytosis 1+; Platelet Estimate Adequate (Adequate)
[2024-05-03 05:20] LABS: Hypochromasia 1+; Ovalocytes 1+
[2024-05-03 05:21] LABS: Schistocytes Rare
[2024-05-03] MEDS: IPRATROPIUM BR 0.02% INH SOLN 0.5 MG/2.5 ML VIAL 0.2 MG INHALATION ×2 (06:56→20:10)
[2024-05-03] MEDS: CALCITONIN NASAL 200 UNITS/SPRAY 3.7 ML BOTTLE 1 SPRAY NASAL (09:15)
[2024-05-03] MEDS: SERTRALINE HCL 50 MG TABLET 100 MG PO (09:15)
[2024-05-03] MEDS: ASPIRIN 81 MG CHEWABLE TABLET PO (09:15)
[2024-05-03] MEDS: AMIODARONE HCL 200 MG TABLET PO (09:15)
[2024-05-03] MEDS: METOPROLOL SUCCINATE EXT REL 25 MG TABCR PO (09:15)
[2024-05-03] MEDS: MULTIVITAMINS /C LUTEIN (CENTRUM SILVER) TABLET *BKC 1 TAB PO (09:15)
[2024-05-03] MEDS: droNABinol (*CRX) 2.5 MG CAPSULE PO ×2 (09:15→17:34)
--- NOTE | 2024-05-03 15:19 | P.PNIM_ITS ---
Progress Note: A&P Assessment and Plan (1) Acute metabolic encephalopathy: Code(s): G93.41 - Metabolic encephalopathy Status: Acute Assessment and Plan: 04/30/24: Resolved; this was the reason the patient presented to the hospital - Urine culture: No growth - Head CT: No acute intracranial findings - Chest XR: No acute cardiopulmonary process - UDS negative - TSH, ammonia, B12 and folate WNL - Holding baclofen and gabapentin -ammonia negative -could be due to patient recently switching facilities/new environment -family at bedside states he is back to his baseline 05/01/24: * continue neuro checks 05/02/24: * No change to current treatment plan (2) Supratherapeutic INR: Code(s): R79.1 - Abnormal coagulation profile Status: Acute Assessment and Plan: 05/01/24: * Initial INR on 04/24/2024 was 8.6, now down to 2.1 * Continue with renally dosed Xarelto 05/02/24: * Continue with current treatment plan (3) Falls: Code(s): W19.XXXA - Unspecified fall, initial encounter Status: Acute Assessment and Plan: 05/01/24: * Waiting on insurance authorization to return to [facility] 05/02/24: * No change (4) Stage 3b chronic kidney disease: Code(s): N18.32 - Chronic kidney disease, stage 3b Status: Chronic Assessment and Plan: 05/01/24: * Creatinine 1.4, EGFR 49 * Continue to trend 05/02/24: * Creatinine 1.50, eGFR 45 * Likely rise is due to patient not eating or drinking, will give 1L fluid bolus 05/03/24: * Creatinine 1.6 today * Patient baseline creatinine runs 1.7-2.4 in the past year according to previous record * Patient follows with Dr. Martin Ingram for his chronic kidney disease, he has seen Dr. Garduno in the past (5) Chronic anemia: Code(s): D64.9 - Anemia, unspecified Status: Acute Assessment and Plan: 05/01/24: * Has had testicular cancer, malignant melanoma, stage IIIB chronic kidney disease in his history. Likely secondary to these conditions. * Hemoglobin 9.1 * Vitamin B12 909, folate greater than 20, TSH 2.250, iron 48, ferritin 103, TIBC 270 * Continue iron supplement 05/02/24: * Hgb 9.5 today * No change to current treatment plan 05/03/24: * No change to current treatment plan (6) Atrial fibrillation: Code(s): I48.91 - Unspecified atrial fibrillation Status: Acute Assessment and Plan: Continue Eliquis and amiodarone -spoke with the patient and family extensively about the amiodarone and his elevated liver enzymes. I do suggest a talk to his metal wire technician soon about the plan of care for rhythm control as the amiodarone is likely causing increased liver enzymes and he may need an alternative. They have agreed to reach out to his metal wire technician at [facility] 05/01/24: * Continue amiodarone and Xarelto renally dosed 05/02/24: * No change to current treatment plan (7) Hypertension: Code(s): I10 - Essential (primary) hypertension Status: Acute Assessment and Plan: 05/01/24: * Continue metoprolol * No change to current treatment plan 05/02/24: * No change to current treatment plan (8) Chronic diastolic heart failure: Code(s): I50.32 - Chronic diastolic (congestive) heart failure Status: Acute Assessment and Plan: 05/01/24: * On metopr
--- NOTE | 2024-05-03 15:19 | PM.IMPN ---
Progress Note: A&P Assessment and Plan (1) Acute metabolic encephalopathy: Code(s): G93.41 - Metabolic encephalopathy Status: Acute Assessment and Plan: 04/30/24: Resolved; this was the reason the patient presented to the hospital - Urine culture: No growth - Head CT: No acute intracranial findings - Chest XR: No acute cardiopulmonary process - UDS negative - TSH, ammonia, B12 and folate WNL - Holding baclofen and gabapentin -ammonia negative -could be due to patient recently switching facilities/new environment -family at bedside states he is back to his baseline 05/01/24: continue neuro checks 05/02/24: No change to current treatment plan (2) Supratherapeutic INR: Code(s): R79.1 - Abnormal coagulation profile Status: Acute Assessment and Plan: 05/01/24: Initial INR on 04/24/2024 was 8.6, now down to 2.1 Continue with renally dosed Xarelto 05/02/24: Continue with current treatment plan (3) Falls: Code(s): W19.XXXA - Unspecified fall, initial encounter Status: Acute Assessment and Plan: 05/01/24: Waiting on insurance authorization to return to [facility] 05/02/24: No change (4) Stage 3b chronic kidney disease: Code(s): N18.32 - Chronic kidney disease, stage 3b Status: Chronic Assessment and Plan: 05/01/24: Creatinine 1.4, EGFR 49 Continue to trend 05/02/24: Creatinine 1.50, eGFR 45 Likely rise is due to patient not eating or drinking, will give 1L fluid bolus 05/03/24: Creatinine 1.6 today Patient baseline creatinine runs 1.7-2.4 in the past year according to previous record Patient follows with Dr. Martin Ingram for his chronic kidney disease, he has seen Dr. Garduno in the past (5) Chronic anemia: Code(s): D64.9 - Anemia, unspecified Status: Acute Assessment and Plan: 05/01/24: Has had testicular cancer, malignant melanoma, stage IIIB chronic kidney disease in his history. Likely secondary to these conditions. Hemoglobin 9.1 Vitamin B12 909, folate greater than 20, TSH 2.250, iron 48, ferritin 103, TIBC 270 Continue iron supplement 05/02/24: Hgb 9.5 today No change to current treatment plan 05/03/24: No change to current treatment plan (6) Atrial fibrillation: Code(s): I48.91 - Unspecified atrial fibrillation Status: Acute Assessment and Plan: Continue Eliquis and amiodarone -spoke with the patient and family extensively about the amiodarone and his elevated liver enzymes. I do suggest a talk to his boiler house inspector soon about the plan of care for rhythm control as the amiodarone is likely causing increased liver enzymes and he may need an alternative. They have agreed to reach out to his boiler house inspector at [facility] 05/01/24: Continue amiodarone and Xarelto renally dosed 05/02/24: No change to current treatment plan (7) Hypertension: Code(s): I10 - Essential (primary) hypertension Status: Acute Assessment and Plan: 05/01/24: Continue metoprolol No change to current treatment plan 05/02/24: No change to current treatment plan (8) Chronic diastolic heart failure: Code(s): I50.32 - Chronic diastolic (congestive) heart failure Status: Acute Assessment and Plan: 05/01/24: On metoprolol however this could be for rate control with his AFib, no echo or cardiology note to review to confirm diagnosis 05/02/24: No change to current treatment plan (9) Transaminitis: Code(s): R74.01 - Elevation of levels of liver transaminase levels Status: Acute Assessment and Plan: 05/01/24: May be due to the side effect of amiodarone, patient will need to follow up with boiler house inspector on an outpatient basis Total CK 29, hepatitis panel was negative AST 96, ALT 93 05/02/24: AST 118, ALT 110 Will hold atorvastatin although total CK was 29 yesterday W
[2024-05-03] MEDS: RIVAROXABAN 15 MG TABLET PO (17:34)
[2024-05-04 04:44] LABS: Basophils Absolute Auto 0.1 K/mm3 (0.0-0.1); Basophils Percent Auto 0.8 % (0.2-1.2); Eosinophils Absolute Auto 0.2 K/mm3 (0-0.3); Eosinophils Percent Auto 4.1 % (0-4.4); Hematocrit 29.5 % (42.0-52.0); Hemoglobin 9.1 g/dL (14.0-18.0); Immature Granulocyte Absolute 0.03 K/mm3 (0.00-0.031); Immature Granulocyte Percent A 0.5 % (0-0.5); Lymphocytes Absolute Auto 0.93 K/mm3 (0.9-3.2); Lymphocytes Percent Auto 15.7 % (18.3-44.2); Mean Corpuscular HGB Conc 30.8 g/dl (32-36); Mean Corpuscular Hemoglobin 30.7 pg (26-34); Mean Corpuscular Volume 99.7 fl (80-100); Mean Platelet Volume 10.2 fl (7.4-10.4); Monocytes Absolute Auto 0.5 K/mm3 (0.1-0.6); Monocytes Percent Auto 8.6 % (2.6-8.5); Neutrophils Absolute Auto 4.2 K/mm3 (1.3-6.7); Neutrophils Percent Auto 70.3 % (45.5-73.1); Platelet Count Result 229 k/mm3 (150-375); Red Blood Count 2.96 M/mm3 (4.6-6.20); Red Cell Distribution Width 15.6 % (11.5-14.5); White Blood Count 5.9 K/mm3 (4.5-10.0)
[2024-05-04 04:55] LABS: Alanine Aminotransferase 179 U/L (6-50); Alkaline Phosphatase 103 U/L (38-126); Anion Gap 3 mmol/L (4-12); Aspartate Amino Transferase 179 U/L (17-59); Bilirubin,Total 0.8 mg/dL (0.2-1.3); Blood Urea Nitrogen 38 mg/dL (9-20); Calcium 8.6 mg/dL (8.4-10.2); Carbon Dioxide 28 mmol/L (22-30); Chloride 107 mmol/L (98-107); Estimated CRCL calculation 38 ml/min; Estimated Glomerular Filt Rate 42; Glucose 72 mg/dL (65-110); Potassium 4.3 mmol/L (3.4-5.0); Sodium 138 mmol/L (137-145)
[2024-05-04 05:19] VITALS: BP 126/55; PULSE 72; RESP 17; TEMP 36.3; O2SAT 95
[2024-05-04 08:26] VITALS: PULSE 78
[2024-05-04] MEDS: AMIODARONE HCL 200 MG TABLET PO (08:26)
[2024-05-04] MEDS: METOPROLOL SUCCINATE EXT REL 25 MG TABCR PO (08:26)
[2024-05-04] MEDS: ASPIRIN 81 MG CHEWABLE TABLET PO (08:26)
[2024-05-04] MEDS: CALCITONIN NASAL 200 UNITS/SPRAY 3.7 ML BOTTLE 1 SPRAY NASAL (08:27)
[2024-05-04] MEDS: MULTIVITAMINS /C LUTEIN (CENTRUM SILVER) TABLET *BKC 1 TAB PO (08:27)
[2024-05-04] MEDS: SERTRALINE HCL 50 MG TABLET 100 MG PO (08:27)
[2024-05-04] MEDS: droNABinol (*CRX) 2.5 MG CAPSULE PO (08:27)
[2024-05-04] MEDS: IPRATROPIUM BR 0.02% INH SOLN 0.5 MG/2.5 ML VIAL 0.2 MG INHALATION (09:00)
[2024-05-04 09:02] VITALS: PULSE 77; RESP 20; O2SAT 92
[2024-05-04 09:12] VITALS: PULSE 77; RESP 20
--- NOTE | 2024-05-04 10:59 | PM.DS ---
DS: Admitting Diagnosis Discharge Date 05/04/24 Admitting Diagnosis Altered mental status Supratherapeutic INR Stage IIIB chronic kidney disease Chronic anemia Atrial fibrillation Chronic diastolic heart failure Chronic anticoagulation Hypertension DS: Discharge Diagnosis Discharge Diagnosis (1) Acute metabolic encephalopathy: Code(s): G93.41 - Metabolic encephalopathy Status: Acute (2) Supratherapeutic INR: Code(s): R79.1 - Abnormal coagulation profile Status: Acute (3) Falls: Code(s): W19.XXXA - Unspecified fall, initial encounter Status: Acute (4) Stage 3b chronic kidney disease: Code(s): N18.32 - Chronic kidney disease, stage 3b Status: Chronic (5) Chronic anemia: Code(s): D64.9 - Anemia, unspecified Status: Acute (6) Atrial fibrillation: Code(s): I48.91 - Unspecified atrial fibrillation Status: Acute (7) Hypertension: Code(s): I10 - Essential (primary) hypertension Status: Acute (8) Chronic diastolic heart failure: Code(s): I50.32 - Chronic diastolic (congestive) heart failure Status: Acute (9) Transaminitis: Code(s): R74.01 - Elevation of levels of liver transaminase levels Status: Acute DS: Summary Hospital Course Reason for hospitalization: Altered mental status Supratherapeutic INR Stage IIIB chronic kidney disease Chronic anemia Atrial fibrillation Chronic diastolic heart failure Chronic anticoagulation Hypertension Hospital Course: This is a 79-year-old male who presented to the hospital on 04/24/2024 with altered mental status. Workup in the hospital includes chest x-ray which was negative. CT of the head x2 was negative. Initial labs showed a white blood cell count of 6.4, hemoglobin 9.0, ESR greater than 140, INR was 8.6, BUN 43, creatinine 1.7, EGFR 39, iron 48, TIBC 270, ferritin 103, AST 74, ALT 48, ammonia was less than 9, vitamin B12 909, TSH 2.25, folate greater than 20, UA was also obtained which shown 1+ urine protein, trace ketone, 1+ urine bili, 3-5 urine RBC, 6-10 urine WBC. The urine drug screen was negative. Hepatitis panel was negative. On examination today patient is alert, lying in the bed. Family is at the bedside. Patient denies any fever, chills, nausea, vomiting, diarrhea, abdominal pain, chest pain, shortness a breath. Daughter states patient has not had good oral intake of food or fluid since he has been here. Nursing reports that he has been orthostatic with his blood pressures overnight and this morning requiring IV fluid bolus. Patient encouraged to increase po intake of food and fluid. He does get supplements on his tray and I encouraged him to drink those at the very least. Labs today reveal hemoglobin of 9.1, INR 2.1,-creatinine 1.4, e GFR 49, AST 96, ALT 93, total CK 29. PT and OT working with patient. Case coordination working on placement, awaiting authorization. 05/02/24: Patient denies any new complaints today. Labs today reveal Hgb 9.5, creatinine 1.50, eGFR 45, AST 118, ALT 110. Patient given 1L NS bolus for hydration. He continues to have poor intake. I did encourage patient to eat at least 50% of his meals and drink his ensure. We are waiting for authorization to return back to assisted living. Will trial him on Marinol to help stimulate his appetite. 05/03/24: Patient denies any new complaints today. Labs today show a hemoglobin of 9.0, creatinine 1.6, EGFR 42, AST 135, ALT 134. US of the abdomen was negative. Copper level is pending. Still waiting authorization to return back to assisted living facility. 05/04/24: No new complaints today. Patient is stable for discharge back to [facility]. Final diagnosis: Altered mental status, supratherapeutic INR Status at Discharge Cognitive/behavioral status at discharge: Alert and oriented x3 Functional status at discharge: uses cane/walker Overall status at discharge: patient is progressing
[2024-05-04 12:22] LABS: SARS-CoV-2 RNA PCR Negative (Negative)
== END 2024-05-04 13:10 ==
LOC: ANHED 18:22 → ANH2MED 20:11
PROVIDERS: Internal Medicine; Nurse Practitioner; Physician Assistant; Student in an Organized Health Care Education/Training Program; Admitting Provider Internal Medicine; Emergency Provider Emergency Medicine; PCP Family Medicine; Visit Provider Nurse Practitioner Acute Care
DX: G93.41 Metabolic encephalopathy (principal); R79.1 Abnormal coagulation profile; R29.6 Repeated falls; E43 Unspecified severe protein-calorie malnutrition; R74.01 Elevation of levels of liver transaminase levels; I48.91 Unspecified atrial fibrillation; I25.10 Atherosclerotic heart disease of native coronary artery without angina pectoris; I13.0 Hypertensive heart and chronic kidney disease with heart failure and stage 1 through stage 4 chronic kidney disease, or unspecified chronic kidney disease; I50.32 Chronic diastolic (congestive) heart failure; N18.32 Chronic kidney disease, stage 3b; E78.5 Hyperlipidemia, unspecified; J96.10 Chronic respiratory failure, unspecified whether with hypoxia or hypercapnia; Z99.81 Dependence on supplemental oxygen; D64.9 Anemia, unspecified; F41.8 Other specified anxiety disorders; Z86.711 Personal history of pulmonary embolism; Z85.47 Personal history of malignant neoplasm of testis; Z79.01 Long term (current) use of anticoagulants; Z79.82 Long term (current) use of aspirin; Z95.5 Presence of coronary angioplasty implant and graft; Z79.51 Long term (current) use of inhaled steroids; Z68.32 Body mass index [BMI] 32.0-32.9, adult; Z79.899 Other long term (current) drug therapy
CPT/HCPCS: 36415; 36600; 70450; 71045; 76705; 80048; 80053; 80074; 80307; 81001; 82140; 82375; 82525; 82550; 82607; 82728; 82746; 82805; 82948; 83050; 83540; 83550; 83605; 83735; 84443; 85025; 85027; 85610; 85652; 85730; 86140; 86850; 86900; 86901; 87040; 87086; 87635; 93005; 94640; 96360; 96361; 96374; 97110; 97116; 97161; 97166; 97530; 97535; 99285; A9270; G0378; J2405; J7030; J7120

== ENCOUNTER 2024-05-20 12:52 | Emergency (ER) | payer OTHER, MEDICARE, SELFPAY ==
--- NOTE | 2024-05-20 13:57 | ER_ITS ---
This report was moved to the correct visit on 06/02/2024. The original report was signed by Thi Bhardwaj APRN on 05/20/241913. HPI - General Adult General Chief complaint: Nausea/Vomiting/Diarrhea Stated complaint: N/V Time Seen by Provider: 05/20/24 13:02 History of Present Illness HPI narrative: Michael Wu is a 79 y/o male who presents today via EMS with his two daughters. Per daughters pt has had a slow decline in health since his 5 years ago. He had a fall in March that sent him to a rehab facility he then went to [place] re[place] [facility] but has since declined more over the past two weeks refusing to eat/ complains of pain/ refusing medications - he is a DNR and wishes to be on Hospice. They were going to consult with hospice next week but today he started to have increased belly pain and new onset nausea/vomiting/ dry heaving more so and they were given the option to come to the ED to initiate the hospice service. In the mean time family would only like minimal tests and would like to keep him comfortable Related Data Home Medications Medication Instructions Recorded Confirmed amiodarone 200 mg tablet 200 mg PO DAILY 03/27/24 05/18/24 aspirin 81 mg capsule 81 mg PO DAILY 03/27/24 05/18/24 atorvastatin 40 mg tablet 40 mg PO DAILY 03/27/24 05/18/24 baclofen 10 mg tablet 10 mg PO Q8H PRN muscle spasms 03/27/24 05/18/24 multivit with minerals-iron 18 1 tablet PO DAILY 03/27/24 05/18/24 mg-folic ac 400 mcg-vit K 25 mcg tablet (Adults Multivitamin) sertraline 100 mg tablet 100 mg PO DAILY 03/27/24 05/18/24 acetaminophen 500 mg tablet 1,000 mg PO Q6H PRN Pain (Scale 04/24/24 05/18/24 Score 1-3) calcitonin (salmon) 200 1 spray intranasal DAILY 04/24/24 05/18/24 unit/actuation nasal spray formoterol fumarate 20 mcg/2 mL 2 ml inhalation BID 04/24/24 05/18/24 solution for nebulization ipratropium bromide 0.02 % 1 ml inhalation BID 04/24/24 05/18/24 solution for inhalation iron,carbonyl 30 mg-vitamin C 10 1 tablet PO BID 04/24/24 05/18/24 mg-FOS 25 mg chewable tablet (Chewable Iron) rivaroxaban 20 mg tablet (Xarelto) 20 mg PO DAILY 04/24/24 05/18/24 Allergies Allergy/AdvReac Type Severity Reaction Status Date / Time No Known Allergies Allergy Verified 03/27/24 21:13 Review of Systems Review of Systems: All systems reviewed & are unremarkable except as noted in HPI and below PMFSH Past Medical History Medical History Atrial fibrillation Chronic anemia Chronic anticoagulation Chronic diastolic heart failure Closed wedge compression fracture of T12 vertebra with routine healing Coronary artery disease Depression with anxiety Hyperlipidemia Hypertension Malignant melanoma Pulmonary embolism Stage 3b chronic kidney disease Testicular cancer Surgical History Surgical History History of cardiac catheterization History of coronary artery stent placement Family History Family History Mother Cancer Father Malignant neoplasm of prostate Social History Social History Social History: Surrogate medical decision maker: Constance Pak, daughter. Code status: Do not resuscitate. Smoking status: Never smoker Alcohol intake: never Substance use: never Substance use type: does not use Do You Feel Safe in your Home?: Yes Lack of Transportation: No Lack of Food: N
[2024-05-20 17:03] LABS: Appearance Urine Cloudy (Clear); Bacteria Urine 4+ /hpf; Bilirubin Urine 2+ (Negative); Blood Urine Negative (Negative); Color Urine Dark Yellow (Yellow); Glucose Urine UA Negative (Negative); Hyaline Casts Urine Present /lpf; Ketones Urine 2+ mg/dL (Negative); Leukocyte Esterase Ur 2+ LEU/UL (Negative); Nitrate Urine Negative (Negative); Non Pathogenic Casts >20; Protein Urine 1+ mg/dL (Negative); RBC Urine 0-2 /hpf (0-2); Specific Grav Ur 1.022 (1.001-1.035); Squamous Epithelial Cell Urine Few /hpf (Few); WBC Urine 51-100 /hpf (0-3); pH Urine 5.5 (5.0-9.0)
[2024-05-20 17:07] LABS: Add Urine Microscopic? YES
--- NOTE | 2024-07-08 19:37 | PC.NURSE ---
LATE ENTRY This note is being entered to document information to the patient's record. The following information was omitted on [05/20/24], by [ Tracie Burroughs RN] Phlebotomy called due to patient severe difficulty with obtaining blood.
--- NOTE | 2024-07-08 19:40 | PC.NURSE ---
LATE ENTRY This note is being entered to document information to the patient's record. The following information was omitted on [05/20/24], by [Tracie Burroughs, RN @ 0625] [facility] is at the bedside for evaluation .
== END 2024-05-20 15:00 | disposition hospice, inpatient (51) ==
LOC: ANHED 06-06 07:59
PROVIDERS: Emergency Provider Nurse Practitioner Family; PCP Family Medicine
DX: R62.7 Adult failure to thrive (principal); N39.0 Urinary tract infection, site not specified; R11.2 Nausea with vomiting, unspecified; R10.9 Unspecified abdominal pain; R74.01 Elevation of levels of liver transaminase levels; Z51.5 Encounter for palliative care; I48.91 Unspecified atrial fibrillation; I25.10 Atherosclerotic heart disease of native coronary artery without angina pectoris; E11.22 Type 2 diabetes mellitus with diabetic chronic kidney disease; I13.0 Hypertensive heart and chronic kidney disease with heart failure and stage 1 through stage 4 chronic kidney disease, or unspecified chronic kidney disease; N18.32 Chronic kidney disease, stage 3b; I50.32 Chronic diastolic (congestive) heart failure; D64.9 Anemia, unspecified; F41.8 Other specified anxiety disorders; E78.5 Hyperlipidemia, unspecified; Z66 Do not resuscitate; Z95.5 Presence of coronary angioplasty implant and graft; Z86.711 Personal history of pulmonary embolism; Z85.820 Personal history of malignant melanoma of skin; Z85.47 Personal history of malignant neoplasm of testis; Z79.899 Other long term (current) drug therapy; Z79.01 Long term (current) use of anticoagulants; Z79.82 Long term (current) use of aspirin
CPT/HCPCS: 81001; 87077; 87086; 87186; 99285; J0696; J2270; J2405; J7030

== ENCOUNTER 2024-05-20 15:00 | HOS | payer OTHER, MEDICARE, SELFPAY ==
[2024-05-20 13:00] VITALS: BP 125/79; PULSE 104; RESP 18; TEMP 37.3; O2SAT 98
--- NOTE | 2024-05-20 13:45 | ED.GENADULT ---
HPI - General Adult General Chief complaint: Nausea/Vomiting/Diarrhea Stated complaint: N/V Time Seen by Provider: 05/20/24 13:02 History of Present Illness HPI narrative: Michael Wu is a 79 y/o male who presents today via EMS with his two daughters. Per daughters pt has had a slow decline in health since his 5 years ago. He had a fall in March that sent him to a rehab facility he then went to a different rehab/ correction but has since declined more over the past two weeks refusing to eat/ complains of pain/ refusing medications - he is a DNR and wishes to be on Hospice. They were going to consult with hospice next week but today he started to have increased belly pain and new onset nausea/vomiting/ dry heaving more so and they were given the option to come to the ED to initiate the hospice service. In the mean time family would only like minimal tests and would like to keep him comfortable Related Data Home Medications Medication Instructions Recorded Confirmed amiodarone 200 mg tablet 200 mg PO DAILY 03/27/24 05/18/24 aspirin 81 mg capsule 81 mg PO DAILY 03/27/24 05/18/24 atorvastatin 40 mg tablet 40 mg PO DAILY 03/27/24 05/18/24 baclofen 10 mg tablet 10 mg PO Q8H PRN muscle spasms 03/27/24 05/18/24 multivit with minerals-iron 18 1 tablet PO DAILY 03/27/24 05/18/24 mg-folic ac 400 mcg-vit K 25 mcg tablet (Adults Multivitamin) sertraline 100 mg tablet 100 mg PO DAILY 03/27/24 05/18/24 acetaminophen 500 mg tablet 1,000 mg PO Q6H PRN Pain (Scale 04/24/24 05/18/24 Score 1-3) calcitonin (salmon) 200 1 spray intranasal DAILY 04/24/24 05/18/24 unit/actuation nasal spray formoterol fumarate 20 mcg/2 mL 2 ml inhalation BID 04/24/24 05/18/24 solution for nebulization ipratropium bromide 0.02 % 1 ml inhalation BID 04/24/24 05/18/24 solution for inhalation iron,carbonyl 30 mg-vitamin C 10 1 tablet PO BID 04/24/24 05/18/24 mg-FOS 25 mg chewable tablet (Chewable Iron) rivaroxaban 20 mg tablet (Xarelto) 20 mg PO DAILY 04/24/24 05/18/24 Allergies Allergy/AdvReac Type Severity Reaction Status Date / Time No Known Allergies Allergy Verified 03/27/24 21:13 Review of Systems Review of Systems: All systems reviewed & are unremarkable except as noted in HPI and below PMFSH Past Medical History Medical History Atrial fibrillation Chronic anemia Chronic anticoagulation Chronic diastolic heart failure Closed wedge compression fracture of T12 vertebra with routine healing Coronary artery disease Depression with anxiety Hyperlipidemia Hypertension Malignant melanoma Pulmonary embolism Stage 3b chronic kidney disease Testicular cancer Surgical History Surgical History History of cardiac catheterization History of coronary artery stent placement Family History Family History Mother Cancer Father Malignant neoplasm of prostate Social History Social History Social History: Surrogate medical decision maker: Constance Pak, daughter. Code status: Do not resuscitate. Smoking status: Never smoker Alcohol intake: never Substance use: never Substance use type: does not use Do You Feel Safe in your Home?: Yes Lack of Transportation: No Lack of Food: Never True Current Housing: I Have Housing Concerned About Future Housing: No Difficulty Paying Gas/Electric Bills: No Difficulty Paying for Meds: No Currently Unemployed: No Education: High School Diploma/GED Difficulty w/ Childcare or Family Care: No Spiritual care concerns: No Exam Narrative: GENERAL: pale / frail / HEAD: Normocephalic, atraumatic. EYES: PERRLA ENT: Nares clear, no rhinorrhea or epistaxis. NECK: Supple. No adenopathy or masses. No carotid bruits or JVD CHEST: Clear to ausc
[2024-05-20] MEDS: ONDANSETRON INJ 4 MG/2 ML VIAL IV PUSH ×2 (13:46→17:38)
[2024-05-20] MEDS: SODIUM CHLORIDE 0.9% IV 1,000 ML 999 ML IV CONT (13:46)
[2024-05-20] MEDS: FAMOTIDINE 20 MG/2 ML VIAL IV PUSH (13:47)
[2024-05-20] MEDS: MORPHINE SULFATE (*CRX) 4 MG/ML INJ IV PUSH ×2 (13:48→17:38)
[2024-05-20 13:49] VITALS: BP 128/75; PULSE 104; RESP 22; O2SAT 98
--- NOTE | 2024-05-20 14:42 | PC.NURSE ---
Phlebotomy called due to patient severe difficulty with obtaining blood.
--- NOTE | 2024-05-20 14:51 | PC.NURSE ---
[facility] is at the bedside for evaluation .
[2024-05-20 15:58] LABS: Basophils Percent Auto 0.1 % (0.2-1.2); Hematocrit 37.5 % (42.0-52.0); Hemoglobin 11.9 g/dL (14.0-18.0); Immature Granulocyte Absolute 0.04 K/mm3 (0.00-0.031); Immature Granulocyte Percent A 0.5 % (0-0.5); Lymphocytes Absolute Auto 0.41 K/mm3 (0.9-3.2); Mean Corpuscular HGB Conc 31.7 g/dl (32-36); Mean Corpuscular Hemoglobin 30.4 pg (26-34); Mean Corpuscular Volume 95.9 fl (80-100); Mean Platelet Volume 9.9 fl (7.4-10.4); Monocytes Absolute Auto 0.6 K/mm3 (0.1-0.6); Monocytes Percent Auto 6.7 % (2.6-8.5); Neutrophils Absolute Auto 7.2 K/mm3 (1.3-6.7); Neutrophils Percent Auto 87.7 % (45.5-73.1); Platelet Count Result 259 k/mm3 (150-375); Red Blood Count 3.91 M/mm3 (4.6-6.20); Red Cell Distribution Width 15.7 % (11.5-14.5); White Blood Count 8.2 K/mm3 (4.5-10.0)
[2024-05-20 16:35] LABS: Albumin Level 3.4 g/dL (3.5-5.1); Alkaline Phosphatase 192 U/L (38-126); Anion Gap 16 mmol/L (4-12); Bilirubin,Total 1.3 mg/dL (0.2-1.3); Blood Urea Nitrogen 44 mg/dL (9-20); Calcium 8.8 mg/dL (8.4-10.2); Carbon Dioxide 20 mmol/L (22-30); Chloride 104 mmol/L (98-107); Estimated Glomerular Filt Rate 39; Glucose 124 mg/dL (65-110); Potassium 3.8 mmol/L (3.4-5.0); Sodium 140 mmol/L (137-145)
[2024-05-20 16:46] LABS: Alanine Aminotransferase 842 U/L (6-50); Aspartate Amino Transferase 792 U/L (17-59)
--- NOTE | 2024-05-20 17:04 | PCCCNOTE ---
CC called to the ED for a hospice consult. The family wanted [facility] set up as soon as possible. [facility] contacted, referral sent. Christie, from Hospice came to speak with the pt and family. Hospice Nurse, evaluated patient, pt will be excepted as GIP.
[2024-05-20 17:40] VITALS: BP 158/91; PULSE 101; RESP 13; O2SAT 95
--- NOTE | 2024-05-20 18:58 | PM.IMHP ---
H&P: HPI History of Present Illness Date/Time: 05/20/24 18:58 Chief Complaint: Uncontrolled pain Narrative: This unfortunate 79-year-old gentleman with a history of coronary artery disease congestive heart failure atrial fibrillation pulmonary embolus and COPD has had multiple recent hospitalizations. [facility] [place] with [facility]. He went to rehab. After a stay in rehab he became confused and was admitted to a [facility] for metabolic encephalopathy. He was sent back to rehab at [facility]. While at [facility] he had no signs or symptom of infection other than the metabolic encephalopathy. This cleared and he was back to his baseline oriented x3. At [facility] she ate poorly and began complaining of abdominal discomfort. Lower aching moderate to severe. No urinary symptoms. No bowel changes other than. He had no emesis until today. He states he might have had blood streaks in the vomit. Your brought the emergency department brief was AP with WBC of 8.2k and with an abnormal urinalysis with 4+ bacteria and pyuria. His pain murmurs leave with 4 mg of morphine IV. He was too nauseated to tolerate oral analgesics. The patient and his 2 daughters had been discussing hospice previously and decided at this time that they wished comfort care with hospice. Review of Systems Review of Systems: All systems reviewed & are unremarkable except as noted in HPI and below PMFSH Past Medical History Medical History Atrial fibrillation Chronic anemia Chronic anticoagulation Chronic diastolic heart failure Closed wedge compression fracture of T12 vertebra with routine healing Coronary artery disease Depression with anxiety Hyperlipidemia Hypertension Malignant melanoma Pulmonary embolism Stage 3b chronic kidney disease Testicular cancer Surgical History Surgical History History of cardiac catheterization History of coronary artery stent placement Family History Family History Mother Cancer Father Malignant neoplasm of prostate Social History Social History Social History: Surrogate medical decision maker: Constance Pak, daughter. Code status: Do not resuscitate. Smoking status: Never smoker Alcohol intake: never Substance use: never Substance use type: does not use Do You Feel Safe in your Home?: Yes Lack of Transportation: No Lack of Food: Never True Current Housing: I Have Housing Concerned About Future Housing: No Difficulty Paying Gas/Electric Bills: No Difficulty Paying for Meds: No Currently Unemployed: No Education: High School Diploma/GED Difficulty w/ Childcare or Family Care: No Spiritual care concerns: No Meds Home Medications and Allergies Home Medications Medication Instructions Recorded Confirmed Type amiodarone 200 mg tablet 200 mg PO DAILY 03/27/24 05/18/24 History aspirin 81 mg capsule 81 mg PO DAILY 03/27/24 05/18/24 History atorvastatin 40 mg tablet 40 mg PO DAILY 03/27/24 05/18/24 History baclofen 10 mg tablet 10 mg PO Q8H PRN muscle spasms 03/27/24 05/18/24 History multivit with minerals-iron 18 1 tablet PO DAILY 03/27/24 05/18/24 History mg-folic ac 400 mcg-vit K 25 mcg tablet (Adults Multivitamin) sertraline 100 mg tablet 100 mg PO DAILY 03/27/24 05/18/24 History gabapentin 100 mg capsule 200 mg PO BID #60 caps 04/10/24 05/18/24 Rx metoprolol succinate 25 mg 25 mg PO DAILY #30 tabs 04/10/24 05/18/24 Rx tablet,extended release 24 hr (Toprol XL) acetaminophen 500 mg tablet 1,000 mg PO Q6H PRN Pain (Scale 04/24/24 05/18/24 History Score 1-3) calcitonin (salmon) 200 1 spray intranasal DAILY 04/24/24 05/18/24 History unit/actuation nasal spray formoterol fumarate 20 mcg/2 mL 2 ml inhalation BID 0
[2024-05-20 19:17] VITALS: BP 153/89; PULSE 101; RESP 15; O2SAT 94
--- NOTE | 2024-05-20 19:48 | ADMGEN ---
This patient, Michael Wu, was admitted to Medical Room 344-01. Patient/family oriented to hospital policies and general routines including ID bracelet, bed and alarms, visiting hours, pain management, procedures, bathroom and other care routines, personal items, smoking policy, room service/diet, and visiting hours. Information on how to activate the Rapid Response Team has been discussed. Patient/Family are encouraged to report perceived risks to care and to ask questions if they do not understand what they are told or what they should do.
[2024-05-20 20:24] VITALS: BMI 29.0
[2024-05-20 20:42] VITALS: BP 154/87; PULSE 99; RESP 16; TEMP 37; O2SAT 96
[2024-05-20] MEDS: PROCHLORPERAZINE EDISYLATE 10 MG/2 ML VIAL IV PUSH (20:52)
[2024-05-20] MEDS: LORazepam INJ (*CRX) 2 MG/ML VIAL 0.5 MG IV PUSH (20:53)
[2024-05-20] MEDS: HYDROmorphone HCL INJ (*CRX) 1 MG/ML SYR IV PUSH (20:53)
[2024-05-21 06:00] VITALS: BP 147/72; PULSE 102; RESP 16; TEMP 36.7; O2SAT 95
[2024-05-21 09:05] VITALS: PULSE 110
[2024-05-21] MEDS: AMIODARONE HCL 200 MG TABLET PO (09:05)
[2024-05-21 09:07] VITALS: PULSE 110
[2024-05-21] MEDS: ASPIRIN 81 MG ENTERIC TABLET PO (09:07)
[2024-05-21] MEDS: METOPROLOL SUCCINATE EXT REL 25 MG TABCR PO (09:07)
[2024-05-21] MEDS: PROCHLORPERAZINE EDISYLATE 10 MG/2 ML VIAL IV PUSH ×2 (12:18→21:50)
--- NOTE | 2024-05-21 14:18 | PM.IMPN ---
Progress Note: A&P Assessment and Plan (1) Palliative care encounter: Code(s): Z51.5 - Encounter for palliative care Status: Acute Assessment and Plan: Meets inpatient hospice criteria due to requiring IV analgesia for his uncontrolled pain with hydromorphone due to being unable to tolerate oral medications. PRN palliative regimen ordered. Ceftriaxone begun due to likely UTI. 05/20/24: D/w patient and daughters at bedside possibility of resuming amiodarone and anticoagulation once he is able to tolerate oral intake. 05/21/24: Trial of scheduled prochlorpherazine and prn promethazine. (2) Urinary tract infection: Qualifiers: Hematuria presence: without hematuria Urinary tract infection type: acute cystitis Qualified Code(s): N30.00 - Acute cystitis without hematuria Code(s): N39.0 - Urinary tract infection, site not specified Status: Acute Assessment and Plan: Continue ceftriaxone (started 05/20/24) (3) Increased nausea and vomiting: Code(s): R11.2 - Nausea with vomiting, unspecified Status: Acute Assessment and Plan: Possibly due to urinary tract infection (4) Abdominal pain: Qualifiers: Abdominal location: generalized Qualified Code(s): R10.84 - Generalized abdominal pain Code(s): R10.9 - Unspecified abdominal pain Status: Acute Assessment and Plan: possibly due to urinary tract infection (5) Elevated liver enzymes: Code(s): R74.8 - Abnormal levels of other serum enzymes Status: Acute Assessment and Plan: possibly due to urinary tract infection 05/03/2024 ultrasound right upper quadrant within normal limits (6) Chronic kidney disease, stage 3a: Code(s): N18.31 - Chronic kidney disease, stage 3a Status: Acute (7) Chronic anemia: Code(s): D64.9 - Anemia, unspecified Status: Acute (8) Depression with anxiety: Code(s): F41.8 - Other specified anxiety disorders Status: Acute Assessment and Plan: continue sertraline once able to tolerate p.o. meds (9) Atrial fibrillation: Code(s): I48.91 - Unspecified atrial fibrillation Status: Acute (10) Rheumatoid arthritis, unspecified: Code(s): M06.9 - Rheumatoid arthritis, unspecified Status: Acute Assessment and Plan: analgesics p.r.n. (11) History of pulmonary embolism: Code(s): Z86.711 - Personal history of pulmonary embolism Status: Acute (12) Chronic diastolic heart failure: Code(s): I50.32 - Chronic diastolic (congestive) heart failure Status: Acute (13) CAD (coronary artery disease): Code(s): I25.10 - Atherosclerotic heart disease of [place] coronary artery without angina pectoris Status: Acute (14) Hypertension: Code(s): I10 - Essential (primary) hypertension Status: Acute Subjective Date/time seen: 05/21/24 14:18 Interval history: Was doing well this morning. Drink a glass of orange juice. Became nauseated later. Minimal abdominal discomfort. No vomiting. No bowel movement since admission. Uncertain as to last bowel movement. No chest pain or shortness of breath. Review of Systems Review of Systems: All systems reviewed & are unremarkable except as noted in HPI and below Exam Narrative: General. Elderly gentleman lying comfortably in hospital bed. In no acute distress. Eyes. Pupils round reactive to light. Sclerae nonicteric. Neck. No JVD. No thyromegaly. Chest. Clear to auscultation. Normal effort. Heart. Normal S1 and S2. Mildly tachycardic. No audible murmur. Abdomen. Bowel sounds present. Soft. Nontender. Protuberant. No palpable masses. Extremities. No edema. Pedal pulses 1+. Musculoskeletal. No gross deformity to visual inspection. Neurologic. Cranial nerves 3-12 intact to inspection except mildly hard of hearing. Tone symmetric. Strength
[2024-05-21 14:31] VITALS: BP 134/63; PULSE 100; RESP 16; TEMP 36.4; O2SAT 95
[2024-05-21] MEDS: PROMETHAZINE HCL 25 MG/ML AMPUL 12.5 MG IV PUSH (15:25)
[2024-05-21] MEDS: RIVAROXABAN 20 MG TABLET PO (17:11)
[2024-05-21 20:49] VITALS: BP 143/86; PULSE 98; RESP 18; TEMP 36.9; O2SAT 97
[2024-05-22] VITALS (7 sets, daily range): BP systolic 103–117; BP diastolic 55–78; PULSE 74–147; RESP 16–18; TEMP 36.6–36.8; O2SAT 94–97
[2024-05-22] MEDS: HYDROmorphone HCL INJ (*CRX) 1 MG/ML SYR IV PUSH ×2 (00:49→09:21)
[2024-05-22] MEDS: PROCHLORPERAZINE EDISYLATE 10 MG/2 ML VIAL IV PUSH ×2 (05:39→13:34)
[2024-05-22] MEDS: ASPIRIN 81 MG ENTERIC TABLET PO (09:11)
[2024-05-22] MEDS: AMIODARONE HCL 200 MG TABLET PO (09:11)
[2024-05-22] MEDS: METOPROLOL SUCCINATE EXT REL 25 MG TABCR PO (09:13)
--- NOTE | 2024-05-22 15:01 | PM.IMPN ---
Progress Note: A&P Assessment and Plan (1) Palliative care encounter: Code(s): Z51.5 - Encounter for palliative care Status: Acute Assessment and Plan: Meets inpatient hospice criteria due to requiring IV analgesia for his uncontrolled pain with hydromorphone due to being unable to tolerate oral medications. PRN palliative regimen ordered. Ceftriaxone begun due to likely UTI. 05/20/24: D/w patient and daughters at bedside possibility of resuming amiodarone and anticoagulation once he is able to tolerate oral intake. 05/21/24: Trial of scheduled prochlorpherazine and prn promethazine. 05/22/24: Transition to PO analgesics and anxiolytics and discussed possible tranfer to [place] 05/23 (daughter at bedside). (2) Urinary tract infection: Qualifiers: Hematuria presence: without hematuria Urinary tract infection type: acute cystitis Qualified Code(s): N30.00 - Acute cystitis without hematuria Code(s): N39.0 - Urinary tract infection, site not specified Status: Acute Assessment and Plan: Continue ceftriaxone (started 05/20/24) 05/22 preliminary culture results: GNRs (3) Increased nausea and vomiting: Code(s): R11.2 - Nausea with vomiting, unspecified Status: Acute Assessment and Plan: Possibly due to urinary tract infection (4) Abdominal pain: Qualifiers: Abdominal location: generalized Qualified Code(s): R10.84 - Generalized abdominal pain Code(s): R10.9 - Unspecified abdominal pain Status: Acute Assessment and Plan: possibly due to urinary tract infection (5) Elevated liver enzymes: Code(s): R74.8 - Abnormal levels of other serum enzymes Status: Acute Assessment and Plan: possibly due to urinary tract infection 05/03/2024 ultrasound right upper quadrant within normal limits (6) Chronic kidney disease, stage 3a: Code(s): N18.31 - Chronic kidney disease, stage 3a Status: Acute (7) Chronic anemia: Code(s): D64.9 - Anemia, unspecified Status: Acute (8) Depression with anxiety: Code(s): F41.8 - Other specified anxiety disorders Status: Acute Assessment and Plan: continue sertraline once able to tolerate p.o. meds (9) Atrial fibrillation: Code(s): I48.91 - Unspecified atrial fibrillation Status: Acute (10) Rheumatoid arthritis, unspecified: Code(s): M06.9 - Rheumatoid arthritis, unspecified Status: Acute Assessment and Plan: analgesics p.r.n. (11) History of pulmonary embolism: Code(s): Z86.711 - Personal history of pulmonary embolism Status: Acute (12) Chronic diastolic heart failure: Code(s): I50.32 - Chronic diastolic (congestive) heart failure Status: Acute (13) CAD (coronary artery disease): Code(s): I25.10 - Atherosclerotic heart disease of [place] coronary artery without angina pectoris Status: Acute (14) Hypertension: Code(s): I10 - Essential (primary) hypertension Status: Acute Subjective Date/time seen: 05/22/24 15:01 Interval history: No nausea with scheduled anti emetics. No abdominal pain. Minimal p.o. intake. No appetite. No shortness of breath. Generalized weakness. Review of Systems Review of Systems: All systems reviewed & are unremarkable except as noted in HPI and below Exam Narrative: General. Elderly gentleman lying comfortably in hospital bed. In no acute distress. Eyes. Pupils round reactive to light. Sclerae nonicteric. Neck. No JVD. Chest. Clear to auscultation. Normal effort. Heart. Normal S1 and S2. Mildly tachycardic. No audible murmur. Abdomen. Bowel sounds present. Soft. Nontender. Protuberant. No palpable masses. Extremities. No edema. Pedal pulses 1+. Musculoskeletal. No gross deformity to visual inspection. Neurologic. Cranial nerves 3-12 intact to inspection except m
--- NOTE | 2024-05-22 15:34 | PC.NURSE ---
IV reddened and painful, removed intact at 1430. Not able to reestablish IV access, Dr. Tavera notified and medications changed to po administration. Vascular access nurse to place IV tomorrow with US if needed.
[2024-05-22] MEDS: PROCHLORPERAZINE MALEATE 5 MG TABLET 10 MG PO (16:38)
[2024-05-22] MEDS: RIVAROXABAN 20 MG TABLET PO (16:39)
[2024-05-22] MEDS: SENNOSIDES 8.6 MG TABLET 17.2 MG PO (20:27)
[2024-05-22] MEDS: CEFDINIR 300 MG CAPSULE PO (20:27)
[2024-05-23] MEDS: PROCHLORPERAZINE MALEATE 5 MG TABLET 10 MG PO ×3 (01:11→17:34)
[2024-05-23 06:00] VITALS: BP 118/54; PULSE 75; RESP 16; TEMP 36.3; O2SAT 94
[2024-05-23 08:00] VITALS: PULSE 77; RESP 16; O2SAT 93
[2024-05-23 09:28] VITALS: PULSE 62
[2024-05-23] MEDS: METOPROLOL SUCCINATE EXT REL 25 MG TABCR PO (09:28)
[2024-05-23 09:29] VITALS: PULSE 62
[2024-05-23] MEDS: AMIODARONE HCL 200 MG TABLET PO (09:29)
[2024-05-23] MEDS: ASPIRIN 81 MG ENTERIC TABLET PO (09:29)
[2024-05-23] MEDS: CEFDINIR 300 MG CAPSULE PO ×2 (09:29→20:26)
--- NOTE | 2024-05-23 13:55 | PM.DS ---
DS: Admitting Diagnosis Discharge Date May 23, 2024 Admitting Diagnosis Abdominal pain and nausea DS: Discharge Diagnosis Discharge Diagnosis (1) Hospice care: Code(s): Z51.5 - Encounter for palliative care Status: Acute (2) Adult failure to thrive: Code(s): R62.7 - Adult failure to thrive Status: Acute (3) Urinary tract infection: Qualifiers: Hematuria presence: without hematuria Urinary tract infection type: acute cystitis Qualified Code(s): N30.00 - Acute cystitis without hematuria Code(s): N39.0 - Urinary tract infection, site not specified Status: Acute (4) Increased nausea and vomiting: Code(s): R11.2 - Nausea with vomiting, unspecified Status: Acute (5) Abdominal pain: Qualifiers: Abdominal location: generalized Qualified Code(s): R10.84 - Generalized abdominal pain Code(s): R10.9 - Unspecified abdominal pain Status: Acute (6) Elevated liver enzymes: Code(s): R74.8 - Abnormal levels of other serum enzymes Status: Acute DS: Summary Hospital Course Hospital Course: HPI via admitting physician Omar Tavera MD This unfortunate 79-year-old gentleman with a history of coronary artery disease congestive heart failure atrial fibrillation pulmonary embolus and COPD has had multiple recent hospitalizations. He was hospitalized at [facility] in [place] with pneumonia. He went to rehab. After a stay in rehab he became confused and was admitted to a [facility] for metabolic encephalopathy. He was sent back to rehab at [facility]. While at [place] [facility] he had no signs or symptom of infection other than the metabolic encephalopathy. This cleared and he was back to his baseline oriented x3. At [facility] she ate poorly and began complaining of abdominal discomfort. Lower aching moderate to severe. No urinary symptoms. No bowel changes other than. He had no emesis until today. He states he might have had blood streaks in the vomit. Your brought the emergency department brief was AP with WBC of 8.2k and with an abnormal urinalysis with 4+ bacteria and pyuria. His pain murmurs leave with 4 mg of morphine IV. He was too nauseated to tolerate oral analgesics. The patient and his 2 daughters had been discussing hospice previously and decided at this time that they wished comfort care with hospice. ----- His 5 months ago. The patient's abdominal pain has resolved. Nausea controlled with schedule Compazine. He has been evaluated by [facility] hospice. Patient will be returning to his SNF with hospice care. Urine culture on 05/20/2024 growing Enterobacter cloacae/asburia resistant to Augmentin, cefazolin. Sensitive to ceftazidime cefepime ciprofloxacin levofloxacin. Patient received 2 days of ceftriaxone and then transition to cefdinir. Therefore, will discharge on another 3 day course of ciprofloxacin 100 mg p.o. b.i.d.. Discussion held with the daughter regarding continuation of scheduled and p.r.n. medications. Continue amiodarone metoprolol rivaroxaban senna, Compazine. Discontinue all other scheduled medications. Will continue with p.r.n. artificial tears, bisacodyl, Roxanol, Ativan tablet, Phenergan. Further management at the discretion of hospice team with [facility]. He is discharged in stable but guarded condition on 05/23/2024. Patient was DNR. Time Spent with Patient Time attestation: Total time spent providing and/or coordinating discharge services: Exam Const: General: comfortable and no acute distress Other: Pale, frail-appearing. Eyes: Pupils: Equal, round and reactive pupils present Neck: Neck: supple Resp: Effort & Inspection: normal respiratory effort Auscultation: clear to auscultation bilaterally Cardio: Rate: regular rate Rhythm: regular rhythm GI: GI Palp: Yes Soft to palpation and No Tenderness to palpation present (GI) Extrem: General: no edema Discharge Plan Dis
[2024-05-23 14:00] VITALS: BP 139/67; PULSE 77; RESP 16; TEMP 36.6; O2SAT 93
--- NOTE | 2024-05-23 14:23 | PM.DS ---
DS: Admitting Diagnosis Discharge Date 05/23/2024 Admitting Diagnosis Uncontrolled abdominal pain and nausea DS: Discharge Diagnosis Discharge Diagnosis (1) Hospice care: Code(s): Z51.5 - Encounter for palliative care Status: Acute (2) Adult failure to thrive: Code(s): R62.7 - Adult failure to thrive Status: Acute (3) Urinary tract infection: Qualifiers: Hematuria presence: without hematuria Urinary tract infection type: acute cystitis Qualified Code(s): N30.00 - Acute cystitis without hematuria Code(s): N39.0 - Urinary tract infection, site not specified Status: Acute Assessment and Plan: Continue ceftriaxone (started 05/20/24) 05/22 preliminary culture results: GNRs (4) Increased nausea and vomiting: Code(s): R11.2 - Nausea with vomiting, unspecified Status: Acute Assessment and Plan: Possibly due to urinary tract infection (5) Abdominal pain: Qualifiers: Abdominal location: generalized Qualified Code(s): R10.84 - Generalized abdominal pain Code(s): R10.9 - Unspecified abdominal pain Status: Acute Assessment and Plan: possibly due to urinary tract infection (6) Elevated liver enzymes: Code(s): R74.8 - Abnormal levels of other serum enzymes Status: Acute Assessment and Plan: possibly due to urinary tract infection 05/03/2024 ultrasound right upper quadrant within normal limits DS: Summary Hospital Course Reason for hospitalization: Abdominal pain with nausea and emesis. Hospital Course: This unfortunate 79-year-old gentleman with a history of coronary artery disease congestive heart failure atrial fibrillation pulmonary embolus and COPD has had multiple recent hospitalizations. He was hospitalized at [facility] in [place] with pneumonia. He went to rehab. After a stay in rehab he became confused and was admitted to a [facility] for metabolic encephalopathy. He was sent back to rehab at [facility]. While at [facility] he had no signs or symptom of infection other than the metabolic encephalopathy. This cleared and he was back to his baseline oriented x3. At [facility] she ate poorly and began complaining of abdominal discomfort. Lower aching moderate to severe. No urinary symptoms. No bowel changes other than. He had no emesis until 05/20 and was sent to the ED via EMS. He states he might have had blood streaks in the vomit. Your brought the emergency department brief was AP with WBC of 8.2k and with an abnormal urinalysis with 4+ bacteria and pyuria. His pain murmurs leave with 4 mg of morphine IV. He was too nauseated to tolerate oral analgesics. The patient and his 2 daughters had been discussing hospice previously and decided at this time that they wished comfort care with hospice. While on inpatient hospice service he received ceftriaxone and medications for symptoms management. He lost IV access on 05/22. However, after transition to PO medications his symptoms remained well controlled. He continued to eat very poorly. Time Spent with Patient Time attestation: Total time spent providing and/or coordinating discharge services: Exam Narrative: Comfortable. Ox4. Discharge Plan Discharge Attending physician on discharge: Omar Tavera Discharging Clinician: Omar Tavera Patient Disposition: Hospice - Medical Facility Activity: other - see discharge instructions Diet: as tolerated Discharge Instructions: May be transfer from bed to chair with assistance as tolerated. Patient Instructions: Rivaroxaban (By mouth), Heart Failure (DC), Safe Use of Anticoagulants (DC) Stand Alone Forms: General Discharge Information, Halfway Discharge Follow-up/Referrals: Omar Tavera MD [Physician] - Keep Reg. Scheduled Appt. (per hospice protocol) Discharge Medications: New lorazepam 0.5 mg Tablet 0.5 mg PO Q6H PRN (Reason: Anxiet
[2024-05-23] MEDS: RIVAROXABAN 20 MG TABLET PO (17:35)
[2024-05-23 20:02] VITALS: BP 110/47; PULSE 77; RESP 16; TEMP 36.4; O2SAT 95
[2024-05-23] MEDS: SENNOSIDES 8.6 MG TABLET 17.2 MG PO (20:26)
--- NOTE | 2024-05-24 00:05 | PC.NURSE ---
Navin POLLACK and patient daughter wanted transfer to [facility] at ~2100 held due to the late hour. Navin RN called and cancelled admission to [facility] until 05/24/24 am. Care coordination notified per teletypewriter installer.
[2024-05-24 06:00] VITALS: BP 128/59; PULSE 72; RESP 16; TEMP 36.2; O2SAT 94
--- NOTE | 2024-05-24 11:21 | PC.NURSE ---
RN called hospitalist Rossi to confirm discharge. No answer at this time. RN called Zuleima with [facility] back. Call went straight to voicemail.
--- NOTE | 2024-05-24 12:03 | PC.NURSE ---
RN called hospitalist to confirm discharge. No answer at this time.
--- NOTE | 2024-05-24 12:10 | PC.NURSE ---
RN spoke with Dr. Tavera via telephone and patient is okay to discharge.
== END 2024-05-23 14:25 | disposition home or self-care (01) | DRG 690 ==
LOC: ANHED 19:12 → ANH3MED 20:22 → ANH3MEDSUR 06-14 16:11
PROVIDERS: Nurse Practitioner Family; Admitting Provider Internal Medicine; PCP Family Medicine; Visit Provider Internal Medicine
DX: N30.00 Acute cystitis without hematuria (principal); I13.0 Hypertensive heart and chronic kidney disease with heart failure and stage 1 through stage 4 chronic kidney disease, or unspecified chronic kidney disease; I50.32 Chronic diastolic (congestive) heart failure; Z51.5 Encounter for palliative care; Z66 Do not resuscitate; E78.5 Hyperlipidemia, unspecified; F41.9 Anxiety disorder, unspecified; F32.A Depression, unspecified; I48.91 Unspecified atrial fibrillation; I25.10 Atherosclerotic heart disease of native coronary artery without angina pectoris; J44.9 Chronic obstructive pulmonary disease, unspecified; M06.9 Rheumatoid arthritis, unspecified; N18.31 Chronic kidney disease, stage 3a; R11.2 Nausea with vomiting, unspecified; R62.7 Adult failure to thrive; R74.8 Abnormal levels of other serum enzymes; Z79.01 Long term (current) use of anticoagulants; Z79.82 Long term (current) use of aspirin; Z86.711 Personal history of pulmonary embolism; Z85.47 Personal history of malignant neoplasm of testis; Z95.5 Presence of coronary angioplasty implant and graft
CPT/HCPCS: 36415; 80053; 81001; 85025; 87077; 87086; 87186; 96361; 96374; 96375; 96376; 99285; A9270; J0696; J0780; J1170; J2060; J2270; J2405; J2550; J7030

== ENCOUNTER 2024-06-24 07:55 | Emergency (ER) | payer MEDICARE, SELFPAY ==
--- NOTE | ~2024-06-24 | XR_ITS ---
XR hip BI 2V w AP pelvis Ordering provider: Don Hughes MD History: . PT ROLLED OUT OF BED. REDNESS TO RT HIP . Comparison: None. FINDINGS: BONES: No acute fracture or dislocation. HIP JOINT SPACES: Normal. SACROILIAC JOINT SPACES/LUMBAR SPINE: The sacroiliac joint spaces are normal. Mild degenerative yeung es of the visualized lower lumbar spine. PUBIC SYMPHYSIS: Normal. SOFT TISSUES: Normal. IMPRESSION: No acute osseous abnormality of the bilateral hips and pelvis. Reviewed, dictated and finalized at location A.
--- NOTE | ~2024-06-24 | CT_ITS ---
EXAMINATION: CT brain wo con DATE: 06/24/2024 08:20 INDICATION: Head injury. Fall from bed. TECHNIQUE: Computed tomography (CT) of the head was performed without intravenous contrast. The mA wa s adjusted according to patient size. Iterative reconstruction technique was employed. The dose-lengt h product was 681.00 mGy-cm. COMPARISON: Head CT 04/26/24 FINDINGS: There are scattered areas of low attenuation in the cerebral white matter. There is no intr acranial hemorrhage, acute infarction, or abnormal intracranial mass lesion. The ventricles are fatimah l in size. The orbits are normal. There are bilateral optic nerve drusen. The paranasal sinuses are c lear. The mastoid air cells are normal. IMPRESSION: 1. Stable moderate nonspecific cerebral white matter disease, which likely represents chronic small v essel ischemic disease. Reviewed, dictated and finalized at location A. IMPRESSION: 1. Stable moderate nonspecific cerebral white matter disease, which likely repr esents chronic small vessel ischemic disease.
--- NOTE | 2024-06-24 08:04 | ED.FALL ---
HPI - Fall General Chief Complaint: Fall Stated Complaint: fall History of Present Illness HPI Narrative: 79-year-old male presenting to the emergency department for evaluation after having a fall from bed. Patient is primarily nonverbal at baseline. Patient is DNR and hospice care. Upon arrival to the emergency department patient denies any complaints. shelter told EMS that the patient tends to roll out of bed on purpose because he is hoping to be discharged home so that way he can at home. shelter staff states that the patient does often rule out of bed intentionally. Related Data Home Medications Medication Instructions Recorded Confirmed amiodarone 200 mg tablet 200 mg PO DAILY 03/27/24 05/20/24 acetaminophen 500 mg tablet 1,000 mg PO Q6H PRN Pain (Scale 04/24/24 05/20/24 Score 1-3) formoterol fumarate 20 mcg/2 mL 2 ml inhalation BID 04/24/24 05/20/24 solution for nebulization Allergies Allergy/AdvReac Type Severity Reaction Status Date / Time No Known Allergies Allergy Verified 03/27/24 21:13 Review of Systems Review of Systems: ROS unobtainable: Yes unobtainable due to medical condition [facility] Past Medical History Medical History Atrial fibrillation Chronic anemia Chronic anticoagulation Chronic diastolic heart failure Closed wedge compression fracture of T12 vertebra with routine healing Coronary artery disease Depression with anxiety Hyperlipidemia Hypertension Malignant melanoma Pulmonary embolism Stage 3b chronic kidney disease Testicular cancer Surgical History Surgical History History of cardiac catheterization History of coronary artery stent placement Family History Family History Mother Cancer Father Malignant neoplasm of prostate Social History Social History Social History: Surrogate medical decision maker: Constance Pka, daughter. Code status: Do not resuscitate. Smoking status: Never smoker Alcohol intake: never Substance use: never Substance use type: does not use Do You Feel Safe in your Home?: Yes Lack of Transportation: No Lack of Food: Never True Current Housing: I Have Housing Concerned About Future Housing: No Difficulty Paying Gas/Electric Bills: No Difficulty Paying for Meds: No Currently Unemployed: No Education: High School Diploma/GED Difficulty w/ Childcare or Family Care: No Spiritual care concerns: No Exam Narrative: APPEARANCE: calm and pale-appearing HEAD: normocephalic, atraumatic. EYES: PERRLA/EOMI, conjunctivae clear. NOSE: Normal no drainage EARS:TMS clear with good light reflex. THROAT: Pharynx clear, no exudate. NECK: Supple. No adenopathy, no masses. RESPIRATORY: Airway patent, respirations nonlabored. Clear to auscultation bilaterally, no rales, rhonchi, wheezing. CARDIOVASCULAR: Regular rate and rhythm without murmurs rubs or gallops. ABDOMINAL: Soft, nontender, nondistended, normal bowel sounds MUSCULOSKELETAL: Moves all extremities. Strength/ROM intact, No edema, No calf tenderness. NEURO: Alert. Cranial nerves II through XII intact. Grossly intact SKIN: Warm, dry. Normal Color Course Course Emergency Course: Family confirmed patient is hospice comfort care and they are comfortable having the patient transported back to his facility Vital Signs Vital signs: Vital Signs Temperature 97.6 F 06/24/24 08:05 Pulse Rate 89 06/24/24 08:05 Respiratory Rate 16 06/24/24 08:05 Blood Pressure 124/78 06/24/24 08:05 Pulse Oximetry 98 06/24/24 08:05 Oxygen Delivery Room Air 06/24/24 08:05 Temperature 97.8 F 06/24/24 09:55 Pulse Rate 68 06/24/24 09:55 Respiratory Rate 14 06/24/24 09:55 Blood Pressure 98/62 L 06/24/24 09:55 Pulse Oximetry 97
[2024-06-24 08:05] VITALS: BP 124/78; PULSE 89; RESP 16; TEMP 36.4; O2SAT 98
[2024-06-24 09:00] VITALS: BP 109/70; PULSE 66; RESP 14; TEMP 36.4; O2SAT 96
[2024-06-24 09:55] VITALS: BP 98/62; PULSE 68; RESP 14; TEMP 36.6; O2SAT 97
== END 2024-06-24 09:55 | disposition hospice, home (50) ==
PROVIDERS: Emergency Provider Emergency Medicine; PCP Family Medicine
DX: S09.90XA Unspecified injury of head, initial encounter (principal); S79.911A Unspecified injury of right hip, initial encounter; I48.91 Unspecified atrial fibrillation; I50.32 Chronic diastolic (congestive) heart failure; I13.0 Hypertensive heart and chronic kidney disease with heart failure and stage 1 through stage 4 chronic kidney disease, or unspecified chronic kidney disease; N18.32 Chronic kidney disease, stage 3b; I25.10 Atherosclerotic heart disease of native coronary artery without angina pectoris; E78.5 Hyperlipidemia, unspecified; D64.9 Anemia, unspecified; Z66 Do not resuscitate; Z95.5 Presence of coronary angioplasty implant and graft; Z86.711 Personal history of pulmonary embolism; Z85.820 Personal history of malignant melanoma of skin; R90.82 White matter disease, unspecified; W06.XXXA Fall from bed, initial encounter; Z79.01 Long term (current) use of anticoagulants; Z79.899 Other long term (current) drug therapy
CPT/HCPCS: 70450; 73521; 99284